=== PATIENT | female | born 1940 | race Caucasian/White ===

== ENCOUNTER 2017-10-15 10:32 | Outpatient (CLI) | payer OTHER ==
[~2017-10-15] VITALS: Ht 167.6 cm; Wt 51.8 kg
--- NOTE | ~2017-10-15 | CN ---
PATIENT NAME:ESDRAS ALMANZAR MEDICAL RECORD: [id number] : 42 LOCATION:[facility] D.2113 ADMIT DATE: ACCOUNT: [id number] CONSULTING PHYSICIAN: SUSAN DOLL MD REFERRING PHYSICIAN: DAMIÁN PARRISH M.D. DATE OF CONSULTATION: 10/15/2017 Cardiology Consult DIAGNOSES: 1. Chest pain compatible with angina. 2. Family history of coronary artery disease. HISTORY OF PRESENT ILLNESS: Mrs. Almanzar presents with 2 weeks of increasing episodes of chest pain. It waxes and wanes. If she does anything exertion hancock, her chest pain goes up to an 8 or 9 and when she rests, the pain goes away. It is overall worse sitting. She is getting more and more episodes over the last 2 weeks. Her troponin is normal. She continues to have chest pain here in the Emergency Room. PHYSICAL EXAMINATION: GENERAL APPEARANCE: Well-nourished, well-developed, appears stated age. Level of distress, comfortable. PSYCHIATRIC: Mental status, alert, normal affect. Orientation, oriented to time, place and person. EYES: Lids and conjunctiva, noninjected. No discharge, no pallor. ENT: Lips, teeth, gums, normal dentition. Oropharynx, no cyanosis, no pallor. NECK: Carotid arteries, bilateral normal upstroke, no bruits, no thrills. JUGULAR VEINS: No jugular venous pressure or distention. CERVICAL LYMPH NODES: Nontender, nonenlarged. THYROID: Not enlarged. Nontender. No nodules. LUNGS: Respiratory effort, unlabored. CHEST: Normal curvature. No thoracic deformity. No chest wall tenderness. Percussion, resonant. Auscultation, clear. No wheezes, no rales, no rhonchi. CARDIOVASCULAR: Precordial exam, nondisplaced. No heaves or pericardial thrills. Rate and rhythm, regular. Heart sounds, normal S1, normal S2. No S3, no gallop, no rub. Systolic murmur, not heard. Diastolic murmur, not heard. EXTREMITIES: No cyanosis, no edema. Peripheral pulses, full and equal in all extremities, except as noted. No bruits appreciated. ABDOMEN: Soft, nondistended. Normal aorta. No bruit. Nontender. No masses. Liver, nontender, no hepatomegaly. Spleen, nontender, no splenomegaly. MUSCULOSKELETAL: No joint tenderness. No joint swelling. No erythema. NEUROLOGICAL: Normal gait, normal strength, normal tone. SKIN: Warm and dry. OVERALL IMPRESSION: Increasing episodes of chest pain, worsened with any exertion, very good description of unstable angina. We will proceed with coronary angiography. Further care depends upon findings of the angiography. TRANSINT:[id number] Voice Confirmation ID: [id number] DOCUMENT ID: [id number] CONSULT REPORT [id number] ESDRAS ALMANZAR JEFFREY MD at 1713 CC: [id number] DICTATION DATE: 10/15/17 1206 LAUNDRY MACHINE OPERATOR: 10/15/17 1228 REG [facility] [address] [place] [address]
--- NOTE | ~2017-10-15 | HEMODYNAMI ---
PATIENT:ESDRAS COPPOLA MEDICAL RECORD: [id number] : 42 [id number] ADMISSION DATE: 10/15/17 Generatedon:10/15/201713:20 Patient name: ESDRAS COPPOLA Patient #: [id number] SSN: : 1940 Date of study: 10/15/2017 Page: Of Hemodynamic Procedure Report Patient Data Patient Demographics Procedure consent was obtained First Name: ESDRAS Gender: Female Last Name: ABDON : 1940 Patient #: [id number] Age: 77 year(s) Race: Unknown Additional ID: [id number] Contact details [address]: [address] [place] [address] State: [place] City: [place] Zip code: [address] Past Medical History Allergies: No known allergies Admission Admission Data Admission Date: 10/15/2017 Admission Time: 10:32 Admit Source: Emergency department Lab Results Lab Result Date: 10/15/2017 Lab Result Time: 0:00 Biochemistry Name Units Result Min Max BUN mg/dl 12 --(-*--)-- 7 18 Creatinine mg/dl 0.8 --(-*--)-- 0.6 1.3 CBC Name Units Result Min Max Hematocrit % 38.6 *-(----)-- 42 54 Hemoglobin g/dl 13.7 --(*---)-- 13.5 17.5 Procedure Procedure Types Cath Procedure Diagnostic Procedure LHC LHC w/Coronaries FFR/IVUS Intra-Coronary IVUS Initial Procedure Description Procedure Date Procedure Date: 10/15/2017 Procedure Start Time: 13:06 Procedure End Time: 13:17 Procedure Staff Name Function Rahul Craven MD Performing Physician Emigdio Campbell RT Scrub Erickson Ramirez RT Monitor Hoa Rebollar RN Nurse Procedure Data Cath Procedure Fluoroscopy Diagnostic fluoroscopy Total fluoroscopy Time: 1.8 time: 1.8 min min Diagnostic fluoroscopy Total fluoroscopy dose: 0 dose: 0 mGy mGy Contrast Material Contrast Material Type Amount (ml) Isovue 300 46 Entry Location Entry Primary Successful Side Size Upsize Upsize Entry Closure Succes sful Closure Location (Fr) 1 (Fr) 2 (Fr) Remarks Device Remarks Femoral Right 5 Fr 6 Fr Exoseal artery Short Estimated blood loss: 10 ml Diagnostic catheters Device Type Used For End Catheter Placement MULTIPACK Pigtail 5 Fr Procedure catheter MULTIPACK JL 4.0 5Fr Procedure catheter MULTIPACK 3DRC 5Fr Procedure catheter Procedure Complications No complications Procedure Medications Medication Administration Route Dosage Oxygen NC 3 l/min Lidocaine 2% added to field 20 Heparin Flush Bag added to field 2 bags (1000units/500ml NS) 0.9% NaCl I.V. 100 ml/hr Versed I.V. 1 mg Fentanyl I.V. 50 mcg Versed I.V. 1 mg Fentanyl I.V. 50 mcg Hemodynamics Rest HGB: 13.7 (g/dl) Heart Rate: 72 (bpm) Snapshots Pre Cath Intra NCS Post Cath Vital Signs Time Heart Resp SPO2 etCO2 NIBP (mmHg) Rhythm Pain Sedation Rate (ipm) (%) (mmHg) Status Level (bpm) 12:51:41 75 19 100 1.4 130/76(106) NSR 0 (11) 10(A) , No pain 12:55:53 72 25 100 27.6 133/69(110) NSR 0 (11) 10(A) , No pain 13:00:05 69 22 100 19.3 122/65(99) NSR 0 (11) 10(A) , No pain 13:04:15 71 17 93 0 108/60(83) NSR 0 (11) 10(A) , No pain 13:08:21 75 18 93 0 97/56(77) NSR 0 (11) 9(A) , No pain 13:12:23 76 15 94 0 104/57(86) NSR 0 (11) 9(A) , No pain 13:16:24 74 18 92 0 112/62(90) NSR 0 (11) 10(A) , No pain Medications Time Medication Route Dose Verified Delivered Reason Notes Effe ctiveness by by 12:49:53 Oxygen NC 3 Rahul Camara used for l/min Merissa Rebollar diamond setter 12:50:02 Lidocaine 2% added 20ml Rahul aKy for local to vial Merissa Craven MD anesthetic field 12:50:10 Heparin Flush added 2 Rahul Kay used for Bag to bags Merissa Craven MD procedure (1000units/500ml field NS) 12:50:20 0.9% NaCl I.V. 100 Rahulbrian Camara Per ml/hr Merissa Rebollar RN physician 13:01:28 Versed I.V. 1 mg Rahul Wheatleyie for Merissa Rebollar RN sedation 13:01:33 Fentanyl I.V. 50 Rahul Buffie for mcg Merissa Rebollar RN sedation 13:13:04 Versed I.V. 1 mg Rahul Wheatleyie for Merissa Rebollar RN sedation 13:13:08 Fentanyl I.V. 50 Rahul Wheatleyie for mcg Merissa Rebollar RN sedation Procedure Log Time Note 12:28:40 Informed consent obtained and on chart 12:28:45 Admit Source: Emergency department 12:29:35 Diagnostic Cath status Elective 12:29:37 Emigdio PHAN(R) sent for patient. Start room use. 12:29:38 Time tracking: Regular hours (M-F 7:00 - 5:00) 12:29:41 Plan of Care:Hemodynamics will remain stable., Cardiac rhythm will remain stable., Comfort level will be maintained., Respiratory function will remain adequate., Patient/ family verbilizes understanding of procedure., Procedure tolerated without complication., Recovers from procedure without complications.. 12:29:49 H&P Date Dictated: 10/15/2017 New H&P dictated by physician.. 12:38:40 Lab Result : Creatinine 0.8 mg/dl 12:38:40 Lab Result : BUN 12 mg/dl 12:38:40 Lab Result : Hemoglobin 13.7 g/dl 12:38:40 Lab Result : Hematocrit 38.6 % 12:38:43 Lab results completed and on chart. 12:38:50 Patient received from ED to CCL 3 Alert and oriented. Tansferred to table in Supine position. 12:38:51 Warm blankets applied, and ying hugger turned on for patient comfort. 12:38:51 Correct patient and procedure confirmed by team. 12:38:52 ECG and BP/O2 sat monitors applied to patient. 12:38:54 Pre-procedure instructions explained to patient. 12:38:55 Pre-op teaching completed and patient verbalized understanding. 12:38:56 Family in waiting room. 12:38:58 Patient NPO since Midnight. 12:49:53 Oxygen 3 l/min NC was administered by Hoa Rebollar RN; used for procedure; 12:50:02 Lidocaine 2% 20ml vial added to field was administered by Rahul Craven MD; for local anesthetic; 12:50:10 Heparin Flush Bag (1000units/500ml NS) 2 bags added to field was administered by Rahul Craven MD; used for procedure; 12:50:20 0.9% NaCl 100 ml/hr I.V. was administered by Hoa Rebollar RN; Per physician; 12:50:29 Vital chart was started 12:53:03 Baseline sample Acquired. 12:53:13 Rhythm: sinus rhythm 12:53:16 Baseline sample Acquired. 12:57:36 Patient allergic to No known allergies 12:57:38 Is the patient allergic to Iodine/contrast media? No. 12:57:40 Is patient on blood thinner?Yes 12:57:41 ACC The patient was administered the following blood thiners within the last 24 hours: ACCPlavix 12:57:42 Patient diabetic? No. 12:57:44 Previous problem with sedation/anesthesia? No ? 12:57:45 Snore? Yes 12:57:46 Sleep apnea? Yes 12:57:46 Deviated septum? No 12:57:47 Opens mouth fully? Yes 12:57:48 Sticks out tongue? Yes 12:57:50 Airway obstruction? Yes copd 12:57:56 Dentures? Yes top denture out 12:57:59 Pre procedure: right dorsailis pedis pulse 1+ Palpable, but thready & weak; easily obliterated 12:58:00 Patient pain scale 0/10 ?. 12:58:06 IV patent on arrival in left forearm with 0.9% NaCl at [facility]. 12:58:08 Lab results completed and on chart. 12:58:11 Right groin area was prepped with chlora-prep and draped in sterile fashion 12:58:12 Alarms reviewed by R. N. 12:58:12 Sharps counted by scrub and verified by R.N. 12:58:15 Use device set Femoral Dx 12:58:16 ACIST Syringe (41949) opened to sterile field. 12:58:17 Bag Decanter (2001S) opened to sterile field. 12:58:19 ACIST Hand Control (52018) opened to sterile field. 12:58:20 ACIST Manifold (59392) opened to sterile field. 12:58:21 Tegaderm 4 x 4 (1626W) opened to sterile field. 12:58:25 Medline Cath Pack (STMR23610) opened to sterile field. 12:58:25 DIAGNOSTIC WIRE .035 260cm J wire (738484) opened to sterile field. 12:58:26 DIAGNOSTIC Multipack 5Fr catheter set (VJ4904) opened to sterile field. 12:58:28 SHEATH Prelude 5Fr 0.035 (DMY-7B-36-035) opened to sterile field. 12:58:36 Physician arrived 12:58:37 --------ALL STOP TIME OUT------ 12:58:37 Final Timeout: patient, procedure, and site verified with staff and physician. All members of the team are in agreement. 12:58:38 Right groin site verified by team. 12:58:44 Physical assessment completed. ASA score P 3 - A patient with severe systemic disease as per Rahul Craven MD. 12:58:46 Sedation plan: IV Moderate Sedation Medication:Versed, Fentanyl 13:01:28 Versed 1 mg I.V. was administered by Hoa Rebollar RN; for sedation; 13:01:33 Fentanyl 50 mcg I.V. was administered by Hoa Rebollar RN; for sedation; 13:06:53 Procedure started. 13:06:53 Full Disclosure recording started 13:06:56 Local anesthetic to right femoral artery with Lidocaine 2% by Rahul Craven MD.INITIAL ACCESS ONLY 13:07:03 A 5 Fr sheath was inserted into the Right Femoral artery 13:07:10 Zero performed for pressure channel P1 13:07:13 Zero performed for pressure channel P1 13:07:15 Zero performed for pressure channel P1 13:07:27 A MULTIPACK Pigtail 5 Fr catheter was advanced over the wire and used for Procedure. 13:07:43 LV gram done using WILDE 13:07:45 Injector settings: Ml/sec: 10, Volume: 20, 13:07:50 EF : 60 % 13:08:10 Catheter exchanged over wire. 13:08:14 A MULTIPACK JL 4.0 5Fr catheter was advanced over the wire and used for Procedure. 13:08:40 LCA angiography performed. 13:09:29 Catheter exchanged over wire. 13:09:34 A MULTIPACK 3DRC 5Fr catheter was advanced over the wire and used for Procedure. 13:09:50 SHEATH Prelude 6Fr 0.035 (AQB-8X-53-035) opened to sterile field. 13:09:58 INFLATOR Merit BasixCompak (KZ6591) opened to sterile field. 13:10:02 CHOICE PT Extra Support 182cm wire (5653593V6) opened to sterile field. 13:10:07 [facility] [place] IVUS Catheter (32421K) opened to sterile field. 13:10:13 Catheter removed. 13:10:19 Sheath upsized to a 6 Fr Short. 13:11:15 GUIDE 6FR HS I catheter (LA6HSI) opened to sterile field. 13:11:51 6 Fr hsI guide catheter was inserted over the wire 13:12:15 choice pt es wire advanced. 13:12:17 Wire advanced across lesion. 13:12:19 IVUS catheter advanced over wire. 13:13:04 Versed 1 mg I.V. was administered by Hoa Rebollar RN; for sedation; 13:13:08 Fentanyl 50 mcg I.V. was administered by Hoa Rebollar RN; for sedation; 13:13:42 IVUS pass to RCA lesion performed. 13:13:42 IVUS catheter removed over wire. 13:14:02 Wire removed. 13:14:02 Guide catheter removed. 13:14:07 EXOSEAL 6Fr (EX600) opened to sterile field. 13:14:16 Sheath removed intact; hemostasis achieved with Exoseal to the Right Femoral artery. 13:14:17 Procedure ended.(Physican Out) 13:15:09 Fluoroscopy time 01.80 minutes. 13:15:43 Fluoroscopy dose: 0 mGy 13:15:43 Flurop Dose total: 0 13:15:47 Contrast amount:Isovue 300 46ml. 13:15:48 Sharps counted by scrub and verified by R.N. 13:15:53 Post-op/insertion site Right Femoral artery dressed using a 4 x 4 and Tegaderm. 13:15:57 Post right femoral artery:stable, soft, clean and dry 13:16:00 Post Procedure Pulses reassessed and unchanged 13:16:02 Post-procedure physical assessment completed. ASA score P 3 - A patient with severe systemic disease as per Rahul Craven MD. 13:16:04 Post procedure rhythm: unchanged. 13:16:22 Estimated blood loss: 10 ml 13:16:23 Post procedure instruction explained to patient.Patient verbalizes understanding. 13:16:26 Patient needs reinforcement of post procedure teaching. 13:16:36 Procedure type changed to Cath procedure, Diagnostic procedure, LHC, LHC w/Coronaries, FFR/IVUS, Intra-Coronary IVUS Initial 13:16:54 Procedure and supply charges have been captured, reviewed, submitted and are correct. 13:16:55 Procedure Complication : No complications 13:16:57 Vital chart was stopped 13:16:57 See physician's report for complete and final results. 13:16:58 Report given to Pre/Post Procedure Room. 13:17:00 Patient transfered to Pre/Post Procedure Room with Stretcher. 13:17:02 Procedure ended. 13:17:02 Full Disclosure recording stopped 13:17:05 End room use (Document Last) Device Usage Item Name Manufacture Quantity Catalog Number Hospital Part Current Minimal Lot# / Charge Number Stock Stock Serial# Code ACIST Syringe Acist 1 81861 [id number] [id number] 20 (41936) Medical Systems Inc Bag Decanter Microtek 1 2002S 362200 22435 192480 5 (2001S) Medical Inc. ACIST Hand Acist 1 81497 848727 243003 720923 5 Control (67398) Medical Systems Inc ACIST Manifold Acist 1 69974 232032 206932 824653 5 (52161) Medical Systems Inc Tegaderm 4 x 4 3M 1 1626W 101287 931249 462679 5 (1626W) Medline Cath Cardinal 1 [id number] 295671 58828 914654 5 Pack Health ([id number]) DIAGNOSTIC WIRE [facility] Jasiel 1 144373 664054 761721 601036 30 .035 260cm J wire (166229) DIAGNOSTIC Cardinal 1 DE5379 556344 70848 953628 30 Multipack 5Fr Health catheter set (TV0366) SHEATH Prelude Merit 1 LTB-8H-36-035 672307 197300 025201 5 5Fr 0.035 Medical (UHQ-7S-38-035) MULTIPACK Cardinal 1 064142 5 Pigtail 5 Fr Health catheter MULTIPACK JL Cardinal 1 360482 5 4.0 5Fr Health catheter MULTIPACK 3DRC Cardinal 1 402166 5 5Fr catheter Health SHEATH Prelude Merit 1 EIL-9B-0735 033736 6454926 866950 5 6Fr 0.035 Medical (VBM-6H-05-035) INFLATOR Merit Merit 1 QI4661 092011 756880 749246 15 [employer] [facility] Medical (XF0494) CHOICE PT Extra [place] 1 [id number] 905227 360788 707866 5 Support 182cm Scientific wire ([id number]) [facility] 1 95796F 544950 241984 585984 8 [place] IVUS Catheter (37244D) GUIDE 6FR HS I Medtronic 1 LA6HSI 828634 59420 764130 1 catheter (LA6HSI) EXOSEAL 6Fr Cardinal 1 EX600 626921 896706 189715 10 (EX600) Health Signature Audit [place] Stage Time Signature Unsigned Intra-Procedure 10/15/2017 Erickson Ramirez 1:20:08 PM RT(R) Signatures Monitor : Erickson Ramirez RT Signature : Date : Time : [place] [id number] [place] [address]
--- NOTE | ~2017-10-15 | OP ---
PATIENT NAME: ESDRAS COPPOLA MEDICAL RECORD: [id number] :42 LOCATION:D.M2 D.2113 ADMISSION DATE: SURGEON: SUSAN DOLL MD DATE OF OPERATION: 10/15/2017 PROCEDURES: 1. Left heart catheterization. 2. Selective coronary angiography. 3. Left ventriculogram. 4. Intravascular ultrasound. INDICATION: Chest pain compatible with angina. PROCEDURE IN DETAIL: After informed consent was obtained and after detailed explanation of the risks, benefits as well as alternative therapies, the patient elected to proceed with angiogram and heart catheterization. The right femoral area was prepped and draped in normal sterile fashion. Right femoral artery was cannulated via modified Seldinger technique with placement of 5-Polish sheath. All catheters exchanged through this sheath. FINDINGS: Left ventriculogram was performed in standard 30-degree WILDE view, reveals good cardiac wall motion throughout all segments. Overall ejection fraction estimated at 55% to 60%. SELECTIVE CORONARY ANGIOGRAPHY: 1. Left main showed no significant angiographic disease. 2. Left anterior descending has mild irregularities, but no flow-limiting stenosis. 3. The left circumflex has mild irregularities, but no flow-limiting stenosis. 4. The right coronary has mild irregularities with questionable stenosis in the mid vessel; however, intravascular ultrasound reveals there is minimal disease in only a tortuous area of the vessel. OVERALL IMPRESSION: No significant coronary artery disease is present. Normal LV function. Chest pain is noncardiac in etiology. TRANSINT:[id number] Voice Confirmation ID: [id number] DOCUMENT ID: [id number] SUSAN DOLL MD at 1713 CC: [id number] DICTATION DATE: 10/15/17 1322 RETAIL PLANNER: 10/15/17 1335 REG [facility] [address] [place] [address]
[2017-10-15 11:38] LABS: CREATINE KINASE 45 UL (21-215); TROPONIN-I < 0.017 ng/mL (0.000-0.060)
[2017-10-15 12:18] LABS: BASOPHILS 0.3 % (0-2); EOSINOPHILS 0.2 % (0-7); HEMATOCRIT 38.6 % (36.0-48.0); HEMOGLOBIN 13.7 g/dL (12-16); IMMATURE GRANULOCYTES 0.2 % (0-5); LYMPHOCYTES 7.8 % (15-50); MCH 31.9 pg (26.0-34.0); MCHC 35.5 g/dL (31.0-37.0); MEAN PLATELET VOLUME 11.8 fL (7.4-10.4); MONOCYTES 7.2 % (2-11); NEUTROPHILS 84.3 % (40-80); RBC 4.29 10x6/uL (4.00-5.40); RDW 13.3 % (11.5-14.5)
[2017-10-15 12:22] LABS: ANION GAP 9.4 mmol/L (8-16); CALCIUM 8.9 mg/dL (8.5-10.1); CREATININE - SERUM 0.8 mg/dL (0.6-1.3); POTASSIUM - SERUM 4.4 mmol/L (3.5-5.1)
[2017-10-15 12:23] LABS: PLATELET COUNT 352 10x3/uL (130-400)
[2017-10-15 16:24] VITALS: BP 127/55; BMI 18.2
[2017-10-15 20:00] VITALS: BP 97/46
[2017-10-16] VITALS: BP 99/50
[2017-10-16 04:00] VITALS: BP 117/61
[2017-10-16 08:02] VITALS: BP 130/61
[2017-10-16 11:01] VITALS: Ht 167.6 cm; Wt 51.8 kg
[2017-10-16 11:25] VITALS: BP 100/54
[2017-10-16 15:39] VITALS: BP 106/60
[2017-10-16 21:42] VITALS: BP 105/56
[2017-10-16 22:39] LABS: APPEARANCE CLEAR (CLEAR); BILIRUBIN NEGATIVE (NEGATIVE); COLOR YELLOW (YELLOW); GLUCOSE NEGATIVE (NEGATIVE); KETONE NEGATIVE (NEGATIVE); NITRITE NEGATIVE (NEGATIVE); PROTEIN NEGATIVE (NEGATIVE); SPECIFIC GRAVITY 1.005 (1.005-1.020); UROBILINOGEN NORMAL (NORMAL)
[2017-10-16 22:42] LABS: WHITE CELLS - URINE 0-5 /hpf (0-5)
[2017-10-16 22:43] LABS: EPITHELIAL CELLS 0-5 /hpf (0-5)
[2017-10-17 01:22] VITALS: BP 101/59
[2017-10-17 05:37] VITALS: BP 102/53
[2017-10-17 06:45] LABS: BASOPHILS 0.3 % (0-2); EOSINOPHILS 0.4 % (0-7); HEMATOCRIT 34.6 % (36.0-48.0); HEMOGLOBIN 11.9 g/dL (12-16); IMMATURE GRANULOCYTES 0.3 % (0-5); LYMPHOCYTES 8.6 % (15-50); MCH 31.5 pg (26.0-34.0); MCHC 34.4 g/dL (31.0-37.0); MCV 91.5 fL (80.0-100.0); MEAN PLATELET VOLUME 10.3 fL (7.4-10.4); MONOCYTES 8.8 % (2-11); NEUTROPHILS 81.6 % (40-80); PLATELET COUNT 321 10x3/uL (130-400); RBC 3.78 10x6/uL (4.00-5.40); RDW 13.2 % (11.5-14.5); WBC 12.9 10x3/uL (4.8-10.8)
[2017-10-17 07:01] LABS: CALC OSMOLALITY 274 mosm/kg (275-300); CALCIUM 8.4 mg/dL (8.5-10.1); CARBON DIOXIDE 30.8 mmol/L (21.0-32.0); CHLORIDE - SERUM 100 mmol/L (98-107); CREATININE - SERUM 0.7 mg/dL (0.6-1.3); GLUCOSE 133 mg/dL (74-106); POTASSIUM - SERUM 3.3 mmol/L (3.5-5.1); SODIUM 137 mmol/L (136-145); UREA NITROGEN 9 mg/dL (7-18); eGFR NON AFRICAN AMERICAN 86 mL/min (90-120)
[2017-10-17 08:14] VITALS: BP 97/54
[2017-10-17 13:45] VITALS: BP 103/44
[2017-10-17 16:26] VITALS: BP 96/44
[2017-10-17 22:29] VITALS: BP 106/56
[2017-10-18] VITALS: BP 129/66
[2017-10-18 05:42] LABS: BASOPHILS 0.2 % (0-2); EOSINOPHILS 2.5 % (0-7); HEMOGLOBIN 10.8 g/dL (12-16); IMMATURE GRANULOCYTES 0.5 % (0-5); MCH 30.8 pg (26.0-34.0); MCHC 33.8 g/dL (31.0-37.0); MCV 91.2 fL (80.0-100.0); MEAN PLATELET VOLUME 9.8 fL (7.4-10.4); MONOCYTES 7.9 % (2-11); NEUTROPHILS 77.9 % (40-80); PLATELET COUNT 300 10x3/uL (130-400); RBC 3.51 10x6/uL (4.00-5.40); RDW 13.4 % (11.5-14.5)
[2017-10-18 05:50] VITALS: BP 116/63
[2017-10-18 05:59] LABS: CALC OSMOLALITY 275 mosm/kg (275-300); CALCIUM 8.2 mg/dL (8.5-10.1); CARBON DIOXIDE 30.8 mmol/L (21.0-32.0); CHLORIDE - SERUM 103 mmol/L (98-107); CREATININE - SERUM 0.7 mg/dL (0.6-1.3); GLUCOSE 124 mg/dL (74-106); SODIUM 138 mmol/L (136-145); UREA NITROGEN 10 mg/dL (7-18); eGFR NON AFRICAN AMERICAN 86 mL/min (90-120)
[2017-10-18 08:14] VITALS: BP 131/63
[2017-10-18] MEDS ORDERED: PREDNISONE5 MG PO (16:01)
[2017-10-18] MEDS ORDERED: COMBIVENT RESPIM4 GM INH (16:02)
[2017-10-18 16:13] VITALS: BP 118/62
[2017-10-18 16:19] VITALS: BP 106/51
[2017-10-18] MEDS ORDERED: AUGMENTIN 500-11 TA1 PO (16:21)
== END 2017-10-18 18:30 ==
LOC: D.ER 10:32 → D.M2 10:32 → D.CLR 10:32 → EDSTATUS 13:30 → D.ER 14:30 → D.CLR 14:30 → D.M2 15:20 → D.CLR 10-18 18:30
PROVIDERS: Emergency Medicine; Internal Medicine Interventional Cardiology; Internal Medicine Nephrology
DX: R07.9 Chest pain, unspecified (principal); Z82.49 Family history of ischemic heart disease and other diseases of the circulatory system; J44.1 Chronic obstructive pulmonary disease with (acute) exacerbation; E87.1 Hypo-osmolality and hyponatremia; R59.1 Generalized enlarged lymph nodes; F17.203 Nicotine dependence unspecified, with withdrawal; Z01.812 Encounter for preprocedural laboratory examination

== ENCOUNTER 2020-07-04 17:04 | Inpatient (IN) | payer OTHER ==
[~2020-07-04] VITALS: Ht 167.6 cm; Wt 54.4 kg
[~2020-07-04 17:04] MED LIST: AUGMENTIN 500-11 TA1 PO; COMBIVENT RESPIM4 GM INH; PREDNISONE5 MG PO
[2020-07-04 19:13] VITALS: BP 140/57
[2020-07-04] MEDS ORDERED: TORADOL10 MG PO (19:59)
[2020-07-04 21:20] LABS: BASOPHILS 0.3 % (0-2); EOSINOPHILS 0.8 % (0-7); HEMATOCRIT 39.8 % (36.0-48.0); HEMOGLOBIN 13.4 g/dL (12-16); IMMATURE GRANULOCYTES 0.2 % (0-5); LYMPHOCYTE ABS# 1.13 10x3/uL (1.18-3.74); LYMPHOCYTES 9.8 % (15-50); MCHC 33.7 g/dL (31.0-37.0); MCV 89.2 fL (80.0-100.0); MONOCYTES 5.5 % (2-11); NEUTROPHIL ABS# 9.58 10x3/uL (1.56-6.13); NEUTROPHILS 83.4 % (40-80); PLATELET COUNT 250 10x3/uL (130-400); RBC 4.46 10x6/uL (4.00-5.40); RDW 14.1 % (11.5-14.5); WBC 11.5 10x3/uL (4.8-10.8)
[2020-07-04 21:32] LABS: ANION GAP 9.9 mmol/L (8-16); APTT 32.7 SECONDS (22.8-39.4); CALCIUM 8.3 mg/dL (8.5-10.1); CARBON DIOXIDE 29.4 mmol/L (21.0-32.0); INR 1.17 (0.85-1.17); POTASSIUM - SERUM 4.3 mmol/L (3.5-5.1); PROTIME 13.8 SECONDS (11.6-15.0)
[2020-07-04 21:37] LABS: ALBUMIN 3.3 g/dL (3.4-5.0); BILIRUBIN - TOTAL 0.26 mg/dL (0.2-1.3); PROTEIN - SERUM 6.7 g/dL (6.4-8.2)
--- NOTE | 2020-07-04 22:07 | NUR ---
PT REPORT GIVEN TO RACHELE SUTHERLAND WITH VERBAL ACKNOWLEDGEMENT
[2020-07-04 22:36] VITALS: BMI 19.4
[2020-07-04 23:37] VITALS: BP 131/60
--- NOTE | 2020-07-04 23:50 | NUR ---
pt came to floor via bed from er. transferred to med surg bed well. pt rated her pain a 5 but didnt want any pain medication at this time. pt refused non skid socks. nurse applied scds and educated on the use of an incentive spirometer. volume was 1000. pt resting comfortably in bed at this time.
[2020-07-05] VITALS (8 sets, daily range): BP systolic 102–148; BP diastolic 52–64; Ht 167.6 cm; Wt 54.4 kg
[2020-07-05 01:44] LABS: CKMB 0.5 U/L (0.0-3.6); CREATINE KINASE 22 UL (21-215); MAGNESIUM - SERUM 1.9 mg/dL (1.8-2.4); TROPONIN-I < 0.017 ng/mL (0.000-0.060)
[2020-07-05 06:29] LABS: BASOPHILS 0.5 % (0-2); EOSINOPHILS 2.1 % (0-7); HEMATOCRIT 36.5 % (36.0-48.0); HEMOGLOBIN 12.4 g/dL (12-16); IMMATURE GRANULOCYTES 0.1 % (0-5); LYMPHOCYTE ABS# 1.12 10x3/uL (1.18-3.74); LYMPHOCYTES 14.9 % (15-50); MCH 30.2 pg (26.0-34.0); MEAN PLATELET VOLUME 10.5 fL (7.4-10.4); NEUTROPHIL ABS# 5.67 10x3/uL (1.56-6.13); NEUTROPHILS 75.4 % (40-80); PLATELET COUNT 224 10x3/uL (130-400)
[2020-07-05 07:00] LABS: WBC 7.5 10x3/uL (4.8-10.8)
[2020-07-05 07:09] LABS: ALBUMIN 3.1 g/dL (3.4-5.0); ALKALINE PHOSPHATASE 83 U/L (30-120); ALT (SGPT) 11 U/L (10-68); BILIRUBIN - TOTAL 0.49 mg/dL (0.2-1.3); CALC OSMOLALITY 279 mosm/kg (275-300); CARBON DIOXIDE 29.1 mmol/L (21.0-32.0); CHLORIDE - SERUM 102 mmol/L (98-107); CREATININE - SERUM 0.8 mg/dL (0.6-1.3); GLUCOSE 107 mg/dL (74-106); POTASSIUM - SERUM 3.9 mmol/L (3.5-5.1); PROTEIN - SERUM 6.2 g/dL (6.4-8.2); SODIUM 137 mmol/L (136-145); UREA NITROGEN 30 mg/dL (7-18); eGFR NON AFRICAN AMERICAN 73 mL/min (90-120)
--- NOTE | 2020-07-05 07:20 | NUR ---
REC'D IN ROOM AWAKE AND ALERT. RESP EVEN AND UNLABORED WITH NO DISTRESS NOTED. CAN EXPRESS NEEDS AND WANTS. NO C/O NOTED OR VOICED AT THIS TIME. ASSESSMENT COMPLETED. C/L IN REACH AT BEDSIDE.
--- NOTE | 2020-07-05 07:56 | MORECARE ---
CASE MANAGEMENT DISCHARGE SUMMARY PATIENT: ESDRAS COPPOLA UNIT: [id number] ADM DATE: 07/04/20 AGE: 80 : 41 SEX: F ROOM/BED: D.2240 AUTHOR: KALEB WEINSTEIN PHYSICIAN: REFERRING PHYSICIAN: ALBANIA GUTIERREZ MD DATE OF SERVICE: 07/05/20 Discharge Plan Patient Name: ESDRAS COPPOLA Facility: [facility] : 1940 Planned Disposition: Home Anticipated Discharge Date: Discharge Date: Expected LOS: Initial Reviewer: [email or web address] Initial Review Date: 07/04/2020 Generated: 07/05/20 8:55 am Comments DCP- Discharge Planning Updated by [email or web address]: Elizabeth Bowser on 07/05/20 6:[address] PER PATIENT'S NURSE, THE [facility] NEEDS [facility]GERY THIS AM I CALLED THE [facility] AND SPOKE WITH DAMIAN SHE STATED THAT THEY WERE ON DIVERSION FOR TELEMETRY AND THE PATIENT HAS A TELEMETRY ORDER, DAMIAN DIRECTED ME TO CALL [phone]. I CALLED THERE AND SPOKE TO ESTRELLA JOSHI NOTIFICATION ID# IS [id number] Patient Name: ESDRAS COPPOLA Page [phone] at 0756 All edits/amendments must be made on the electronic document DICTATION DATE: 07/05/20 075 SAMPLE SELECTOR: AMELIA 07/05/20 0755 RPT#: [id number] DC DATE: STATUS: ADM IN [facility] [address] [place] [address] END OF REPORT
--- NOTE | 2020-07-05 10:44 | NUR ---
I have reviewed this patient and I concur with the Shift Assessment completed by the Licensed Practical Nurse today this shift.
--- NOTE | 2020-07-05 12:17 | NUR ---
DENIES NEEDS,BUT REQUEST PAIN MEDS FOR HIP. CALL LIGHT IN REACH.WILLOW LAM TO GET PAIN MEDS.
--- NOTE | 2020-07-05 12:25 | NUR ---
MEDICATED WITH MORPHINE PER ORDERS FOR C/O RIGHT HIP PAIN. C/L IN REACH AT BEDSIDE.
--- NOTE | 2020-07-05 16:06 | NUR ---
PT OFF FLOOR FOR SURGERY AT THIS TIME.
--- NOTE | 2020-07-05 18:44 | NUR ---
REC'D BACK FROM RECOVERY AT THIS TIME WITH DRESSING CLEAN DRY AND INTACT TO RIGHT HIP. VERY EASILY TO AROUSED WHEN NAME IS CALLED. RESP EVEN AND UNLABORED WITH NO DISTRESS NOTED. CHECKED ON OFTEN. C/L IN REACH AT BEDSIDE.
--- NOTE | 2020-07-05 20:35 | NUR ---
REPORT RECEIVED, WILL CONT POC. PT A&O, SPEAKING WITH FAMILY AT BEDSIDE. NO S/S OF DISTRESS OBSERVED. RR EVEN & UNLABORED ON 2L. ICE PACK TO HIP FOR POST-SURG CARE. DRESSINGS INTACT WITH MINIMAL BLOOD ON DRESSINGS. PT REPORTS NO PAIN AT THIS TIME. EDUCATED PT TO REPORT ANY PAIN. BED LOCKED AND LOWERED, CL IN REACH. WILL CONT TO MONITOR.
[2020-07-06] VITALS: BP 133/54
[2020-07-06 03:34] VITALS: BP 113/53
[2020-07-06 06:25] LABS: BASOPHILS 0.2 % (0-2); EOSINOPHILS 0.1 % (0-7); HEMATOCRIT 30.4 % (36.0-48.0); HEMOGLOBIN 10.3 g/dL (12-16); IMMATURE GRANULOCYTES 0.1 % (0-5); LYMPHOCYTE ABS# 0.71 10x3/uL (1.18-3.74); LYMPHOCYTES 8.2 % (15-50); MCH 30.1 pg (26.0-34.0); MCHC 33.9 g/dL (31.0-37.0); MCV 88.9 fL (80.0-100.0); MEAN PLATELET VOLUME 10.5 fL (7.4-10.4); MONOCYTES 9.8 % (2-11); NEUTROPHIL ABS# 7.11 10x3/uL (1.56-6.13); NEUTROPHILS 81.6 % (40-80); PLATELET COUNT 208 10x3/uL (130-400); RBC 3.42 10x6/uL (4.00-5.40); RDW 13.9 % (11.5-14.5); WBC 8.7 10x3/uL (4.8-10.8)
[2020-07-06 06:34] LABS: BILIRUBIN NEGATIVE (NEGATIVE); KETONE NEGATIVE (NEGATIVE); NITRITE NEGATIVE (NEGATIVE); UROBILINOGEN NORMAL mg/dL (< 2)
[2020-07-06 06:35] LABS: WHITE CELLS - URINE 3 HPF (0-4)
[2020-07-06 06:36] LABS: BACTERIA FEW HPF (NONE SEEN); SQUAMOUS EPITHELIAL 0-5 HPF (0-4)
[2020-07-06 06:52] LABS: ALBUMIN 2.7 g/dL (3.4-5.0); BILIRUBIN - TOTAL 0.36 mg/dL (0.2-1.3); CALCIUM 7.7 mg/dL (8.5-10.1); CARBON DIOXIDE 28.8 mmol/L (21.0-32.0); CREATININE - SERUM 0.8 mg/dL (0.6-1.3); MAGNESIUM - SERUM 1.8 mg/dL (1.8-2.4); PROTEIN - SERUM 5.3 g/dL (6.4-8.2)
[2020-07-06 06:53] LABS: ANION GAP 9.1 mmol/L (8-16); POTASSIUM - SERUM 4.9 mmol/L (3.5-5.1)
--- NOTE | 2020-07-06 08:22 | OP ---
PATIENT NAME: ESDRAS ALMANZAR MEDICAL RECORD: [id number] :42 LOCATION:D.MS Deal2240 ADMISSION DATE:07/04/20 SURGEON: ALBANIA PAGE DO DATE OF OPERATION: 07/05/2020 PROCEDURE PERFORMED: Right hip intramedullary nailing. PREOPERATIVE DIAGNOSIS: Right hip intertrochanteric fracture. POSTOPERATIVE DIAGNOSIS: Right hip intertrochanteric fracture. INDICATIONS: Esdras Almanzar is a 80-year-old female who fell onto her right hip yesterday. She was brought to the ER. She could not bear weight and seen to have a right hip fracture, intertrochanteric. CT was done as well. She was admitted for surgery today. Overnight, she was n.p.o. I talked to her this morning. I informed her of the risks of this including infection, bleeding, damage to nerves and vessels in the area, continued pain, malunion, nonunion. She would be at increased risk for that because she smokes, blood clots and even . She signed the consent. SURGEON: [place] Page DO DESCRIPTION OF THE PROCEDURE: The patient was taken to the operative suite, laid in supine position, given general anesthetic and LMA was placed. She was given a gram of Ancef and a gram of TXA preoperatively. The patient was then moved over to the [place] table. Time out was performed. Everyone was in agreement with the correct side, site, patient, and procedure. I then reduced the intertrochanteric fracture on the [place] table, and once that was achieved, the right hip was prepped and draped in sterile fashion. I then got a starting point on the greater trochanter and entered into the femoral canal, AP and lateral. I then used the starting reamer and entered into the femoral canal, then reamed up to a 15 and sized the nail to be 360, reamed up to a 15 and put a 13 x 360 nail down. Once this was in adequate position, I put the lag screw in on the lateral and then reamed 100 mm, 5 x 5 lag screw was in good adequate position on AP and lateral. I then put in an antirotational screw 85-mm in length and then I reduced and compressed the fracture after releasing the traction with 10.5 mm lag screw and then locked it into the nail. I then put in the antirotational screw then went distally and put in a distal screw in the dynamic hole 42 mm in length. I then got x-rays, AP and lateral and everything was in good position. We then irrigated. I then closed the IT band of the most proximal incision with a #1 Vicryl in a [id number] fashion and then closed the other incisions with 2-0 Vicryl and the other 2 incisions as well as outlined with 2-0 Vicryl in inverted fashion and placed Prineo glue on them all. She was then dressed with Telfa and Tegaderm. She was awakened and taken to recovery in stable condition. Blood loss was approximately 200 mL. COMPLICATIONS: None. TRANSINT:[id number] Voice Confirmation ID: [id number] DOCUMENT ID: [id number] OPERATIVE REPORT [id number] ESDRAS ALMANZAR,ALBANIA Nichole DO at 0822 CC: [id number] DICTATION DATE: 07/05/201736 RECEIVER: 07/06/20 0314 ADM IN [facility] [address] [place] [address]
[2020-07-06 08:26] VITALS: BP 124/47
--- NOTE | 2020-07-06 09:36 | NUR ---
AAOX4 UPON ENTERING. ADMINSTERED MORNING AT THIS TIME, NO DIFFICULTIES. UPRIGHT IN BED EATING BREAKFAST. DENIES ANY NEEDS AT THIS TIME. BED IN LOWEST POSITION, BED RAILS X2, CALL LIGHT WITHIN REACH. WILL CONTINUE POC.
--- NOTE | 2020-07-06 11:40 | NUR ---
I have reviewed this patient and I concur with the Shift Assessment completed by the Licensed Practical Nurse today this shift.
--- NOTE | 2020-07-06 12:07 | NUR ---
REHAB PRESCREEN PT IS POD#1 HASNT STARTED THERAPY AT THIS TIME, PT HAS [facility] [employer] INSURANCE WILL HAVE TO CHECK IF WLL QUALIFY TO BE ADMITTED TO IRF, WILL MONITOR PROGRESS WHILE WAITING TO HEAR BACK FROM INSURANCE. THANK YOU FOR THIS EVAL. KATHY ACHARYA LPN CLINICAL LAISION
[2020-07-06 12:17] VITALS: BP 109/38
[2020-07-06] MEDS ORDERED: VITAMIN B-121000 MCG PO (13:42)
--- NOTE | 2020-07-06 14:44 | NUR ---
PRN NORCO FOR PAIN IN GROIN AND INCISION SITE. RESTING IN BED, FAMILY AT BEDSIDE. DENIES ANY NEEDS AT THIS TIME. WILL CONTINUE POC.
[2020-07-06 15:55] VITALS: BP 115/48
--- NOTE | 2020-07-06 18:31 | NUR ---
IV MORPHINE FOR PAIN, TOLERATED WELL. RESTING IN BED. DENIES ANY NEEDS AT THIS TIME. BED IN LOWEST POSITION, BED RAILS X2, CALL LIGHT WITHIN REACH. WILL CONTINUE POC.
--- NOTE | 2020-07-06 19:17 | NUR ---
PATIENT RESTING IN BED WITH NO S/S OF DISTRESS AND DENIES NEEDS AT THIS TIME. PATIENT RATED PAIN 1/10 AFTER MORPHINE. PATIENT REQUESTED ANOTHER "PAIN SHOT" AT 2230. I EXPLAINED TO THE PATIENT THAT SINCE SHE IS POSTOP WE SHOULD TRY THE ORAL PAIN MEDICATION THAT IS ORDERED. I ALSO EXPLAINED PAIN PILLS WILL CONTROL HER PAIN LONGER THAN IV PAIN MEDICATION. PATIENT STATED SHE WANTS TO STAY WITH THE IV MEDICATION TONIGHT AND TOMORROW MORNING. BED IN LOWEST POSITION AND CALL LIGHT IN REACH. ENCOURAGED PATIENT TO CALL WITH NEEDS.
[2020-07-06 20:02] VITALS: BP 125/56
--- NOTE | 2020-07-06 20:20 | NUR ---
ADMINISTERED MEDS PER ORDERS. PATIENT MARY JANE WELL. ENCOURAGED TO CALL WITH NEEDS.
[2020-07-07 00:41] VITALS: BP 107/58
[2020-07-07 04:52] VITALS: BP 169/77
[2020-07-07 07:28] LABS: BASOPHILS 0.3 % (0-2); EOSINOPHILS 1.8 % (0-7); HEMATOCRIT 28.8 % (36.0-48.0); HEMOGLOBIN 9.7 g/dL (12-16); IMMATURE GRANULOCYTES 0.1 % (0-5); LYMPHOCYTE ABS# 0.94 10x3/uL (1.18-3.74); LYMPHOCYTES 9.3 % (15-50); MCH 29.8 pg (26.0-34.0); MCHC 33.7 g/dL (31.0-37.0); MCV 88.3 fL (80.0-100.0); MONOCYTES 9.5 % (2-11); PLATELET COUNT 206 10x3/uL (130-400); RBC 3.26 10x6/uL (4.00-5.40); RDW 13.9 % (11.5-14.5); WBC 10.1 10x3/uL (4.8-10.8)
[2020-07-07 07:49] LABS: ALBUMIN 2.7 g/dL (3.4-5.0); ANION GAP 7.3 mmol/L (8-16); BILIRUBIN - TOTAL 0.33 mg/dL (0.2-1.3); CALCIUM 7.4 mg/dL (8.5-10.1); CARBON DIOXIDE 30.7 mmol/L (21.0-32.0); CREATININE - SERUM 0.9 mg/dL (0.6-1.3); MAGNESIUM - SERUM 1.8 mg/dL (1.8-2.4); PROTEIN - SERUM 5.3 g/dL (6.4-8.2)
--- NOTE | 2020-07-07 09:10 | NUR ---
ALERT AND ORIENTED. ASSESSMENT COMPLETE. DENIES NEEDS. BED LOW. CALL GUILLEN AND PERSONAL ITEMS IN REACH. WILL CONTINUE TO MONITOR.
[2020-07-07 09:33] VITALS: BP 128/54
--- NOTE | 2020-07-07 12:09 | NUR ---
SITTING IN CHAIR AT BEDSIDE PER PT. EATING LUNCH. DENIES NEEDS.
[2020-07-07 12:23] VITALS: BP 133/62
[2020-07-07 16:00] VITALS: BP 126/65
--- NOTE | 2020-07-07 19:24 | NUR ---
PATIENT RESTING IN BED WITH NO S/S OF DISTRESS AND DENIES NEEDS AT THIS TIME. BED IN LOWEST POSITION, CALL LIGHT IN REACH, AND BED ALARM ON. ENCOURAGED PATIENT TO CALL WITH NEEDS.
[2020-07-07 19:44] VITALS: BP 117/51
--- NOTE | 2020-07-07 20:23 | NUR ---
ADMINISTERED MEDS PER ORDERS. PATIENT MARY JANE WELL. ENCOURAGED TO CALL WITH NEEDS.
[2020-07-08 05:17] LABS: BASOPHILS 0.3 % (0-2); HEMATOCRIT 28.5 % (36.0-48.0); HEMOGLOBIN 9.6 g/dL (12-16); IMMATURE GRANULOCYTES 0.2 % (0-5); LYMPHOCYTE ABS# 1.52 10x3/uL (1.18-3.74); LYMPHOCYTES 15.3 % (15-50); MCH 29.9 pg (26.0-34.0); MCHC 33.7 g/dL (31.0-37.0); MCV 88.8 fL (80.0-100.0); MEAN PLATELET VOLUME 10.3 fL (7.4-10.4); MONOCYTES 6.8 % (2-11); NEUTROPHIL ABS# 7.48 10x3/uL (1.56-6.13); NEUTROPHILS 75.4 % (40-80); PLATELET COUNT 232 10x3/uL (130-400); RBC 3.21 10x6/uL (4.00-5.40); RDW 13.9 % (11.5-14.5); WBC 9.9 10x3/uL (4.8-10.8)
[2020-07-08 05:44] LABS: ALBUMIN 2.6 g/dL (3.4-5.0); ANION GAP 8.4 mmol/L (8-16); BILIRUBIN - TOTAL 0.45 mg/dL (0.2-1.3); CALCIUM 8.1 mg/dL (8.5-10.1); CARBON DIOXIDE 29.5 mmol/L (21.0-32.0); CREATININE - SERUM 0.8 mg/dL (0.6-1.3); MAGNESIUM - SERUM 1.9 mg/dL (1.8-2.4); POTASSIUM - SERUM 3.9 mmol/L (3.5-5.1); PROTEIN - SERUM 6.1 g/dL (6.4-8.2)
[2020-07-08 08:36] VITALS: BP 169/82
--- NOTE | 2020-07-08 09:39 | NUR ---
PT SITTING UP IN BED WITH FAMILY AT BEDSIDE. RESP EVEN AND UNLABORED. PT REPORTS PAIN 8/10 AT THIS TIME. FAMILY MEMBER REPORTS PT NEEDS "PAIN SHOT". DISCUSSED WITH PT AND FAMILY THAT PT IS POD3 AND SHE HAS HYDROCODONE ORDERED FOR PAIN AND THAT STAFF COULD ADMINISTER PER ORDERS. PT FAMILY QUESTIONS STAFF REGARDING PAIN SHOT. INFORMED HER THAT MORPHINE WAS FOR BREAKTHROUGH PAIN. PROVIDED BOTH PT AND FAMILY EDUCATION REGARDING PAIN MEDICATION AND THAT IT IS NOT A SCHEDULED MEDICATION THAT PT HAS TO ASK FOR PAIN MEDICATION TO BE ADMINISTERED IF SHE IS HURTING. PT VOICES UNDERSTANDING. PAIN MEDICATION ADMINISTERED PER MD ORDER AT THIS TIME. CL WITHIN REACH. ENCOURAGED TO CALL WITH FURTHER NEEDS.
--- NOTE | 2020-07-08 12:04 | MORECARE ---
CASE MANAGEMENT DISCHARGE SUMMARY PATIENT: ESDRAS COPPOLA UNIT: [id number] ADM DATE: 07/04/20 AGE: 80 : 41 SEX: F ROOM/BED: D.2240 AUTHOR: KALEB WEINSTEIN PHYSICIAN: REFERRING PHYSICIAN: ALBANIA GUTIERREZ MD DATE OF SERVICE: 07/08/20 Discharge Plan Patient Name: ESDRAS COPPOLA Facility: [facility]:[place] : 1940 Planned Disposition: Inpatient Rehab Anticipated Discharge Date: Discharge Date: Expected LOS: Initial Reviewer: [email or web address] Initial Review Date: 07/04/2020 Generated: 07/08/20 1:03 pm Comments DCP- Discharge Planning Updated by [email or web address]: Dee Rivero on 07/08/20 9:[address] Patient Name: ESDRAS COPPOLA Admission Status: ER Accout number: [id number] Admission Date: 07-04-2020 : 1940 Admission Diagnosis: Attending: ALBANIA GUTIERREZ Current LOS: 4 Anticipated DC Date: Planned Disposition: Inpatient Rehab Primary Insurance: [facility] Discharge Planning Comments: CM met with patient at bedside after obtaining verbal consent. CM discussed availability / needs of home health, REHAB and medical equipment. Patient and daughter states she will need rehab. DERRELL signed for inpatient rehab at [facility] choice, [facility] as second choice. I have talked with Leah at the tn and she is aware. Anticipate patient dc to rehab when auth is approved. CM to follow and assist as needed. Defense Travel Administrator: Dee Rivero DCP- Discharge Planning Updated by [id number]: Elizabeth Bowser on 07/05/20 5:[address] PER PATIENT'S NURSE, THE PATIENT IS RE[facility]ING TO [facility] BUT NEEDS SURGERY THIS AM I CALLED THE [facility] AND SPOKE WITH DAMIAN SHE STATED THAT THEY WERE ON DIVERSION FOR TELEMETRY AND THE PATIENT HAS A TELEMETRY ORDER, DAMIAN DIRECTED ME TO CALL [phone]. I CALLED THERE AND SPOKE TO ESTRELLA JOSHI NOTIFICATION ID# IS [id number] DCPIA - Discharge Planning Initial Assessment Updated by [email or web address]: Dee Rivero on 07/08/20 11:57 am * Is the patient Alert and Oriented? Yes * [facility] * Preadmission Environment Home with Family * ADLs Independent * List name and contact numbers for known caregivers / representatives who currently or will assist patient after discharge: BG STARKS, * Community resources currently utilized None * Additional services required to return to the preadmission environment? Yes * Can the patient safely return to the preadmission environment? Yes * Has this patient been hospitalized within the prior 30 days at any hospital? No Coverage Notice Reviewer: [email or web address] - Dee Josefa Notice Issued Date-Time: 07/08/2020 11:59 Notice Type: Patient Choice Letter Notice Delivered To: Relationship to Patient: Block Cableman Name: Delivery Method: - Chaya Days: Prior Verbal Notification: Recipient Understood Notice: Yes Recipient Signature: Yes Med Rec Note Co-signed by Attending: Coverage Notice Comment: [facility] inpatient rehab 2nd choice [facility] Last DP export: 07/05/20 5:56 a Patient Name: ESDRAS COPPOLA Page [id number] at 1204 All edits/amendments must be made on the electronic document DICTATION DATE: 07/08/201202 TIMBER PACKER: AMELIA 07/08/201202 RPT#: [id number] DC DATE: STATUS: ADM IN [facility] [address] [place] [address] END OF REPORT
[2020-07-08 12:26] VITALS: BP 108/62
--- NOTE | 2020-07-08 14:55 | NUR ---
Nutrition Follow-up: May discharge to IP rehab soon. Diet: Regular PO intake: 50-75% x last 5 meals Last BM: none recorded since admit Wt: 120# (07/05/20) Meds noted: 1/2NS@75, protonix Labs noted: Na 133(L), Glu 114(H) Recommend continue current diet. Will continue to honor food preferences. RD will follow-up within 3-4 days if patient still admitted.
--- NOTE | 2020-07-08 17:02 | NUR ---
REHAB PRESCREENING Rehab referral recieved. Spoke with Dorcas at [facility] who requested clinicals to be faxed to Alexa Waters at [phone]. Awaiting determination. Thank you for this referral! Radha Cole, [employer]ATHER STRIPPER Rehab PD
[2020-07-08 17:05] VITALS: BP 136/72
--- NOTE | 2020-07-08 17:33 | NUR ---
OT NOTE: PT COMPLETED SIMPLE BED MOB TASKS WITH MAX A. PT HAD C/O PAIN. NURSING AWARE. PT REQUIRED MOD A FOR SIMPLE HYGIENE TASKS. PT REQUIRED EXTRA TIME FOR TASK COMPLETION. [phone] KAE SERNA COTA
[2020-07-08 20:00] VITALS: BP 117/55
[2020-07-09 04:00] VITALS: BP 137/63
[2020-07-09 06:25] LABS: BASOPHILS 0.5 % (0-2); EOSINOPHILS 3.7 % (0-7); HEMATOCRIT 26.8 % (36.0-48.0); HEMOGLOBIN 8.9 g/dL (12-16); IMMATURE GRANULOCYTES 0.1 % (0-5); LYMPHOCYTE ABS# 1.02 10x3/uL (1.18-3.74); LYMPHOCYTES 12.9 % (15-50); MCH 29.6 pg (26.0-34.0); MCHC 33.2 g/dL (31.0-37.0); MEAN PLATELET VOLUME 10.4 fL (7.4-10.4); MONOCYTES 8.6 % (2-11); NEUTROPHIL ABS# 5.87 10x3/uL (1.56-6.13); NEUTROPHILS 74.2 % (40-80); RBC 3.01 10x6/uL (4.00-5.40); WBC 7.9 10x3/uL (4.8-10.8)
[2020-07-09 06:44] LABS: ALBUMIN 2.3 g/dL (3.4-5.0); ANION GAP 6.2 mmol/L (8-16); BILIRUBIN - TOTAL 0.34 mg/dL (0.2-1.3); CALCIUM 8.1 mg/dL (8.5-10.1); CREATININE - SERUM 0.8 mg/dL (0.6-1.3); POTASSIUM - SERUM 4.2 mmol/L (3.5-5.1); PROTEIN - SERUM 5.8 g/dL (6.4-8.2)
[2020-07-09 07:05] LABS: PLATELET COUNT 280 10x3/uL (130-400)
[2020-07-09 08:26] VITALS: BP 99/63
--- NOTE | 2020-07-09 11:50 | NUR ---
OT NOTE: PT DOING WELL. ABLE TO PERFORM GROOMING AND FEEDING WITH SET UP; BED MOB WITH EXT TIME AND MIN/MOD ASSIST; EOB SITTING WITH GOOD BALANCE. PT REQUIRES EXT TIME FOR REST BREAKS AND PREPERATION FOR EACH MOVEMENT. SIT TO STAND WITH MOD ASSIST; TRANSFER WITH MIN ASSIST X 2 AND USE OF WALKER..VERBAL CUES FOR WALKER MGMT AND FOOT PLACEMENT. HAS TOLERATED SITTING UP IN CHAIR THUS FAR FOR GREATER THAN 2 HRS ZE BOWMAN, OTR/L [phone]
[2020-07-09 12:43] VITALS: BP 136/64
--- NOTE | 2020-07-09 14:46 | NUR ---
REHAB PRESCREENING AUTH RECEIVED FROM ID TO [facility] ACUTE INPATIENT REHAB. SHE CAN COME TODAY IF HER PHYSICIANS FEEL SHE IS APPROPRIATE FOR DISCHARGE. THANK YOU FOR THIS REFERRAL! ANGIE RAMIREZ, LOADER DEMOLDER REHAB PD
[2020-07-09] MEDS ORDERED: ACETAMINOPHEN325 MG PO (14:58)
[2020-07-09] MEDS ORDERED: HYDROCODON-ACE1 EA10 PO (14:58)
[2020-07-09] MEDS ORDERED: NICODERM CQ1 EAC3 TRANSDERM (14:58)
[2020-07-09] MEDS ORDERED: IPRAT-ALBUT 0.5-3 ML INH (14:58)
[2020-07-09] MEDS ORDERED: ASPIRIN81 MG PO (14:58)
[2020-07-09] MEDS ORDERED: IPRAT-ALBUT 0.5-3 ML UPD (14:58)
[2020-07-09] MEDS ORDERED: HYDROCODON-ACE1 EAC7 PO (14:58)
[2020-07-09] MEDS ORDERED: PROTONIX40 MG PO (14:59)
[2020-07-09] MEDS ORDERED: COLACE100 MG PO (14:59)
[2020-07-09] MEDS ORDERED: MUCINEX600 MG PO (14:59)
[2020-07-09] MEDS ORDERED: TESSALON PERLE100 MG PO (14:59)
[2020-07-09] MEDS ORDERED: ROCEPHIN 1 GM/D51 G1 IV (17:01)
[2020-07-09] MEDS ORDERED: ZITHROMAX 500M500 MG IV (17:01)
[2020-07-09 17:58] VITALS: BP 127/74
== END 2020-07-09 18:33 | DRG 481 ==
LOC: D.ER 17:04 → D.EDHOLD 21:11 → D.MS 21:11
PROVIDERS: Family Medicine; Orthopaedic Surgery; ADMIT Family Medicine; ATTEND Family Medicine
PROC: 0QH636Z Insertion of Intramedullary Internal Fixation Device into Right Upper Femur, Percutaneous Approach (ICD-10-PCS; principal; 2020-07-05 15:00)
DX: S72.141A Displaced intertrochanteric fracture of right femur, initial encounter for closed fracture (principal); E87.1 Hypo-osmolality and hyponatremia; F17.203 Nicotine dependence unspecified, with withdrawal; W19.XXXA Unspecified fall, initial encounter; Z86.73 Personal history of transient ischemic attack (TIA), and cerebral infarction without residual deficits; J44.9 Chronic obstructive pulmonary disease, unspecified; M81.0 Age-related osteoporosis without current pathological fracture

== ENCOUNTER 2020-07-09 17:02 | Inpatient (IN) | payer OTHER ==
[~2020-07-09] VITALS: Ht 167.6 cm; Wt 55.3 kg
[~2020-07-09 17:02] MED LIST changes: +ACETAMINOPHEN325 MG PO; +ASPIRIN81 MG PO; +COLACE100 MG PO; +HYDROCODON-ACE1 EA10 PO; +HYDROCODON-ACE1 EAC7 PO; +IPRAT-ALBUT 0.5-3 ML INH; +IPRAT-ALBUT 0.5-3 ML UPD; +MUCINEX600 MG PO; +NICODERM CQ1 EAC3 TRANSDERM; +PROTONIX40 MG PO; +ROCEPHIN 1 GM/D51 G1 IV; +TESSALON PERLE100 MG PO; +TORADOL10 MG PO; +VITAMIN B-121000 MCG PO; +ZITHROMAX 500M500 MG IV
--- NOTE | 2020-07-09 19:10 | NUR ---
RECIEVED PT SITTING UP IN BED WATCHING TV. CL IN REACH. DENIES NEEDS AT THIS TIME. BED IN LOW SIDE RAILS X2. RESP EVEN AND UNLABORED. O2 ON 1L VIA NC. RIGHT HIP DRSG X3 INTACT. RIGHT LEG SWOLLEN. A/O X4. BOWEL ACTIVE X4. LUNGS DIMINSHED. CPOC
[2020-07-09 19:28] VITALS: BP 127/46; BMI 19.7
[2020-07-09 20:34] VITALS: BP 127/42
--- NOTE | 2020-07-09 21:00 | NUR ---
ASSISTED PT ON BEDSIDE COMMODE. MODERATE ASSIST PT SLOW TO GET UP DUE TO RIGHT HIP PAIN. ASSISTED BACK IN BED. CL IN REACH. CPOC
--- NOTE | 2020-07-09 21:45 | NUR ---
ATTEMPTED X2 IV ATTEMPTS INTO RIGHT FOREARM. VEIN BLEW EACH ATTEMPT. KOKO SANCHEZ WAS SUCCESSFUL ON THIRD STICK WITH A 22 GUAGE INTO RIGHT AC.
--- NOTE | 2020-07-09 23:00 | NUR ---
ASSISTED TO AND FROM BEDSIDE COMMODE. CL IN REACH. DENIES FURTHER NEEDS.
--- NOTE | 2020-07-09 23:16 | NUR ---
ASSISTED ON BEDPAN PER PT REQUEST AND PT DID NOT URINATE BUT FELT URGE TO. PT STATED "CANT YOU PUT ANOTHER CATHETAR IN ME LIKE UPSTAIRS DID?" THIS NURSE EDUCATED PT ON REHAB AND ITS PURPOSES TO GET BETTER AND GO FORWARD IN PROGRESS NOT BACKWARDS. ENCOURAGED PT THAT WE GET UP AND GO TO BATHROOM ON REHAB TO GET CLOSER TO GOING HOME. THERE WAS NO REASON TO PUT [place] CATH BACK INTO PATIENT.
--- NOTE | 2020-07-10 01:30 | NUR ---
ASSISTED TO AND FROM BEDSIDE COMMODE. CL IN REACH. DENIES FURTHER NEEDS.
--- NOTE | 2020-07-10 04:00 | NUR ---
ASSISTED TO AND FROM BEDSIDE COMMODE. CL IN REACH. DENIES FURTHER NEEDS.
--- NOTE | 2020-07-10 04:52 | NUR ---
I have reviewed this patient and I concur with the Shift Assessment completed by the Licensed Practical Nurse today this shift.
[2020-07-10 06:21] LABS: BASOPHILS 0.6 % (0-2); EOSINOPHILS 3.6 % (0-7); HEMOGLOBIN 9.3 g/dL (12-16); IMMATURE GRANULOCYTES 0.2 % (0-5); LYMPHOCYTE ABS# 0.81 10x3/uL (1.18-3.74); LYMPHOCYTES 9.5 % (15-50); MCH 30.1 pg (26.0-34.0); MCHC 33.2 g/dL (31.0-37.0); MCV 90.6 fL (80.0-100.0); MONOCYTES 7.6 % (2-11); NEUTROPHIL ABS# 6.66 10x3/uL (1.56-6.13); NEUTROPHILS 78.5 % (40-80); PLATELET COUNT 310 10x3/uL (130-400); RBC 3.09 10x6/uL (4.00-5.40); RDW 14.2 % (11.5-14.5); WBC 8.5 10x3/uL (4.8-10.8)
[2020-07-10 06:45] LABS: ANION GAP 11.5 mmol/L (8-16); CALCIUM 8.4 mg/dL (8.5-10.1); CARBON DIOXIDE 27.8 mmol/L (21.0-32.0); CREATININE - SERUM 0.8 mg/dL (0.6-1.3); POTASSIUM - SERUM 4.3 mmol/L (3.5-5.1)
[2020-07-10 08:00] VITALS: BP 104/44
--- NOTE | 2020-07-10 08:00 | NUR ---
SHIFT ASSMT COMPLETED.CL IN REACH.BREAKFAST GIVEN.
[2020-07-10 09:59] VITALS: Ht 167.6 cm; Wt 55.3 kg
--- NOTE | 2020-07-10 10:54 | NUR ---
PATIENT ADMITTS TO RHAB FROM ACUTE FLOOR. PCP IS SHARIFA AT THE [facility]. DISCHARGE PLANS ARE FOR PATIENT TO RETURN HOME WITH FAMILY. WILL CONTINUE TO FOLLOW WITH PATIENT.
--- NOTE | 2020-07-10 12:00 | NUR ---
REMAINS UP IN WHEELCHAIR.
--- NOTE | 2020-07-10 13:58 | NUR ---
CARE TEAM MEETING: PATIENT IS NEW TO UNIT AND WILL BE RA AT NEXT MEETING. WILL CONTINUE TO FOLLOW WITH PATIENT.
--- NOTE | 2020-07-10 16:00 | NUR ---
REMAINS UP IN CHAIR AFTER TOLIETING.
--- NOTE | 2020-07-10 18:45 | NUR ---
BEDSIDE REPORT COMPLETE. RECEIVED PT SITTING UP ON SIDE OF BED ALERT AND ORIENTED X4. C/O 07/03 MILD ACHING RIGHT HIP DISCOMFORT. DRESSING INTACT TO UPPER X2 INCISIONS, DISTAL INCISION SURGICAL CLOSURE INTACT OPEN TO AIR. RIGHT AC IV SL WITHOUT REDNESS OR SWELLING. PT DENIES TENDERNESS. DRESSING AND SWAB CAP INTACT. +1 EDEMA TO BILATERAL FEET. PT HAS BEEN OFF OXYGEN MAJORITY OF THE DAY REPORTED BY KOKO PANDA. NO SHORTNESS OF BREATH NOTED. O2 SAT 95-96% PER KOKO PANDA. WILL MONITOR OXYGEN LEVELS THIS SHIFT. PT DENIES ANY NEEDS. CALL LIGHT WITHIN REACH. FALL PRECAUTIONS IN PLACE. CPOC
[2020-07-10 20:50] VITALS: BP 136/49
--- NOTE | 2020-07-10 20:50 | NUR ---
PT C/O TOENAILS BOTHERING HER WHEN AMBULATING OR IF BUMPS SOMETHING. INSPECTED FEET AND FOUND TOENAILS VERY LONG, THICK, AND CURLING SIDEWAYS TOUCHING TOE BESIDE IT. RIGHT GREAT TOE NAIL RESTING ON 2ND TOE CAUSING PAIN, ATTEMPTED TO PLACE FOLDED 2X2 FOR PROTECTION. WILL CONSULT WITH DR. KILPATRICK TO SEE IF WE CAN GET PODIATRY CONSULT FOR NAILS TO BE CUT SINCE IT IS CAUSING HER PAIN WITH AMBULATION
--- NOTE | 2020-07-10 21:00 | NUR ---
ASSISTED PT TO RESTROOM WITH MOD ASSIST WITH ALL TRANSFERS. MIN ASSIST WITH DRESSING. TOILETING HYGIENE PERFORMED BY PT INDEPENDENTLY. PT IN BED WITH HOB ELEVATED. RIGHT AC INFUSING ROCEPHINE 100ML/HR. O2 SAT 95% AFTER ACTIVITY. NO DISTRESS NOTED. CALL LIGHT WITHIN REACH. COFFEE PROVIDED PER PT REQUEST. FALL PRECAUTIONS IN PLACE. TERI ALARM ON. CPOC
--- NOTE | 2020-07-10 23:47 | NUR ---
PT LYING IN BED SUPINE EYES CLOSED RESTING. HOB ELEVATED. RR EVEN AND UNLABORED. O2 SAT 95% ON ROOM AIR. NO DISTRESS NOTED. CALL LIGHT WITHIN REACH
--- NOTE | 2020-07-11 00:44 | NUR ---
ASSISTED PT TO RESTROOM AND BACK TO BED WITH MOD ASSIST. VOID ONLY. DENIES ANY OTHER NEEDS OR PAIN. NO DISTRESS NOTED. CALL LIGHT WITHIN REACH. CPOC
--- NOTE | 2020-07-11 02:25 | NUR ---
PT CALLED REQUESTING RESTROOM ASSISTANCE. ASSISTED PT WITH TRANSFERS WITH MOD ASSIST USING W/C. TOILETING HYGIENE PERFORMED INDEPENDENTLY BY PT. PT BACK IN BED, DENIES ANY NEEDS OR PAIN. NO DISTRESS NOTED. O2 SAT AFTER ACTIVITY 96% ON ROOM AIR. CALL LIGHT WITHIN REACH. TERI ALARM ON
--- NOTE | 2020-07-11 04:37 | NUR ---
ASSISTED PT TO RESTROOM AND BACK TO BED WITH MOD ASSIST. PT NEEDS HELP GETTING LEGS IN AND OUT OF BED. DENIES ANY OTHER NEEDS. C/O RIGHT HIP 3/10 ACHING PAIN ONLY WITH MOVEMENT. DENIES ANY NEED FOR PAIN MEDICATION. CALL LIGHT WITHIN REACH. TERI ALARM ON
--- NOTE | 2020-07-11 05:55 | NUR ---
ASSISTED PT TO RESTROOM AND BACK TO BED WITH MOD ASSIST. VOID ONLY. DENIES ANY NEEDS. CALL LIGHT WITHIN REACH
[2020-07-11 08:00] VITALS: BP 116/48
--- NOTE | 2020-07-11 10:05 | NUR ---
IN WC IN ROOM WORKING WITH THERAPY.
--- NOTE | 2020-07-11 13:22 | NUR ---
LAYING DOWN IN BED RESTING QUIETLY. SAT UP IN WC IN ROOM FOR LUNCH. STILL DENIES WANTING NICOTINE PATCH. HAS OXYGEN AVAIL IF NEEDED. SATS IN MID TO LOW 90'S. NEEDS SBA TO TRANSFER SHE DOES IT HERSELF. CALL LIGHT IN REACH
--- NOTE | 2020-07-11 18:53 | NUR ---
BEDSIDE REPORT COMPLETE. RECEIVED PT SITTING UP IN BED AWAKE. ALERT AND ORIENTED X4. DENIES ANY PAIN OR NEEDS. RIGHT AC IV WITHOUT REDNESS OR SWELLING. DRESSING AND SWAB CAP INTACT. RIGHT HIP DRESSING C/D/I. NO OXYGEN NOTED. O2 SAT 95% ON ROOM AIR. CALL LIGHT AND WATER WITHIN REACH. TERI ALARM ON. CPOC
[2020-07-11 19:58] VITALS: BP 116/46
--- NOTE | 2020-07-12 00:39 | NUR ---
ASSISTED PT TO RESTROOM AND BACK TO BED WITH MOD ASSIST. DENIES ANY OTHER NEEDS OR PAIN. NO DISTRESS NOTED. CALL LIGHT AND WATER WITHIN REACH. FALL PRECAUTIONS IN PLACE. CPOC
--- NOTE | 2020-07-12 03:05 | NUR ---
PT LYING IN BED SUPINE EYES CLOSED RESTING. RR EVEN AND UNLABORED. CALL LIGHT WITHIN REACH.
--- NOTE | 2020-07-12 04:02 | NUR ---
PT CALLED REQUESTING BATHROOM ASSISTANCE. ASSISTED PT WITH TRANSFER WITH MOD ASSIST. TOILETING HYGIENE PERFORMED BY PT INDEPENDENTLY. PT BACK IN BED ASSISTANCE GETTING LEGS IN AND OUT OF BED. HOB ELEVATED. TERI ALARM ON. CALL LIGHT WITHIN REACH
[2020-07-12 05:47] LABS: EOSINOPHILS 5.1 % (0-7); HEMATOCRIT 25.2 % (36.0-48.0); HEMOGLOBIN 8.4 g/dL (12-16); IMMATURE GRANULOCYTES 0.4 % (0-5); LYMPHOCYTE ABS# 0.89 10x3/uL (1.18-3.74); LYMPHOCYTES 12.8 % (15-50); MCH 29.7 pg (26.0-34.0); MCHC 33.3 g/dL (31.0-37.0); MEAN PLATELET VOLUME 9.7 fL (7.4-10.4); MONOCYTES 11.5 % (2-11); NEUTROPHIL ABS# 4.79 10x3/uL (1.56-6.13); NEUTROPHILS 69.2 % (40-80); PLATELET COUNT 371 10x3/uL (130-400); RBC 2.83 10x6/uL (4.00-5.40); RDW 14.2 % (11.5-14.5); WBC 6.9 10x3/uL (4.8-10.8)
--- NOTE | 2020-07-12 06:05 | NUR ---
ASSISTED PT TO RESTROOM AND BACK TO BED WITH MOD ASSIST. VOID ONLY. CALL LIGHT AND WATER WITHIN REACH. TERI ALARM ON
[2020-07-12 06:20] LABS: CALC OSMOLALITY 273 mosm/kg (275-300); CALCIUM 8.3 mg/dL (8.5-10.1); CARBON DIOXIDE 28.4 mmol/L (21.0-32.0); CHLORIDE - SERUM 102 mmol/L (98-107); CREATININE - SERUM 0.7 mg/dL (0.6-1.3); GLUCOSE 113 mg/dL (74-106); SODIUM 135 mmol/L (136-145); UREA NITROGEN 22 mg/dL (7-18); eGFR NON AFRICAN AMERICAN 85 mL/min (90-120)
[2020-07-12 08:00] VITALS: BP 131/54
--- NOTE | 2020-07-12 11:41 | NUR ---
SPOKE WITH PATIENT DAUGHTER CLARISSE AND SHE IS CALL[facility] AND [facility] . WILL CONTINUE TO FOLLOW WITH PATIENT.
--- NOTE | 2020-07-12 12:04 | NUR ---
SITTING UP IN FOR LUNCH. HAS BEEN WORKING WITH THERAPY THIS MORNING AND DENIES INCREASED PAIN. PAIN MEDS GIVEN ORDERED AND REQUESTED. CALL LIGHT IN REACH
--- NOTE | 2020-07-12 12:55 | NUR ---
WHEN PATIENT DISCHARGES CALL ALEJANDRO BOYCE AT THE [place] [phone], FAX : [phone]. WILL CONTINUE TO FOLLOW WITH PATIENT.
--- NOTE | 2020-07-12 18:23 | NUR ---
PT STILL CONSTIPATED BUT REFUSING LAXATIVES......
--- NOTE | 2020-07-12 20:00 | NUR ---
AWAKE AND ALERT. RESPIRATIONS UNLABORED. RIGHT ARM SALINE LOCK INTACT WITH NO SIGN OF INFILTRATION. DRESSINGS INTACT TO RIGHT LEG. NO ACUTE DISTRESS NOTED. ASSISTED TO BATHROOM AND BACK TO BED. C/O CONSTIPATION. REFUSES MIRALAX. WILL REVIEW OTHER OPTIONS. CALL LIGHT IN REACH.
[2020-07-12 20:03] VITALS: BP 122/51
--- NOTE | 2020-07-13 05:27 | NUR ---
RESTLESS HOURS. UP 10 TIMES IN 12 HOURS TO GO TO BATHROOM. RESPIRATIONS UNLABORED. NO DISTRESS NOTED.
--- NOTE | 2020-07-13 08:00 | NUR ---
SHIFT ASSMT COMPLETED.
[2020-07-13 08:18] VITALS: BP 119/56
[2020-07-13 08:49] LABS: HEMATOCRIT 31.5 % (36.0-48.0); HEMOGLOBIN 10.7 g/dL (12-16)
--- NOTE | 2020-07-13 16:00 | NUR ---
MARY JANE THERAPY.
[2020-07-13 19:00] VITALS: BP 107/43
--- NOTE | 2020-07-13 19:16 | NUR ---
AWAKE AND ALERT. RESTING IN BED WITH RESPIRAITONS UNLABORED. SALINE LOCK WAS OUT WITH CANNULA INTACT. PATIENT STATES HER YELLOW BRACELET HUNG ON IT AND PULLED IT OUT. WILL RESTART SOON. STATES SHE IS HAPPY SHE GOT SOMETHING FROM DOCTOR FOR HER URINARY FERQUENCY. NO ACUTE DISTRESS NOTED. CALL LIGHT IN REACH.
--- NOTE | 2020-07-13 21:36 | NUR ---
IV RESITED TO LEFT FOREARM WITH 22 IV CATH. TOLERATED WELL.
--- NOTE | 2020-07-14 05:03 | NUR ---
QUIET HOURS. NO ACUTE DISTRESS NOTED. UP TO BATHROOM SOME BUT NOT MUCH THE NIGHT BEFORE. RESTING IN BED WITH RESPIRAITONS UNLABORED.
--- NOTE | 2020-07-14 08:00 | NUR ---
SHIFT ASSMT COMPLETED
[2020-07-14 08:48] VITALS: BP 160/61
[2020-07-14 19:00] VITALS: BP 128/74
--- NOTE | 2020-07-14 19:26 | NUR ---
AWAKE AND ALERT. ASSISTED TO BATHROOM AND BACK TO BED. SALINE LOCK IN LEFT FOREARM INTACT WITH NO SIGNS OF INFILTRATION. RESPIRATIONS UNLABORED. CALL LIGHT IN REACH.
--- NOTE | 2020-07-15 01:32 | NUR ---
RESTING IN BED WITH RESPIRATIONS UNLABORED. NO DISTRESS NOTED.
--- NOTE | 2020-07-15 05:06 | NUR ---
GETTING SHOWER. NO ACUTE CHANGES IN CONDITION THIS SHIFT. NO DISTRESS NOTED.
[2020-07-15 07:28] LABS: BASOPHILS 0.7 % (0-2); EOSINOPHILS 5.7 % (0-7); HEMATOCRIT 32.1 % (36.0-48.0); HEMOGLOBIN 10.5 g/dL (12-16); IMMATURE GRANULOCYTES 0.2 % (0-5); LYMPHOCYTE ABS# 1.04 10x3/uL (1.18-3.74); MCH 29.3 pg (26.0-34.0); MCHC 32.7 g/dL (31.0-37.0); MCV 89.7 fL (80.0-100.0); MEAN PLATELET VOLUME 9.1 fL (7.4-10.4); MONOCYTES 7.5 % (2-11); NEUTROPHIL ABS# 5.84 10x3/uL (1.56-6.13); NEUTROPHILS 72.9 % (40-80); PLATELET COUNT 418 10x3/uL (130-400); RBC 3.58 10x6/uL (4.00-5.40); RDW 15.3 % (11.5-14.5)
--- NOTE | 2020-07-15 07:31 | NUR ---
ALERT AND ORIENTED. ASSESSMENT COMPLETE. DENIES NEEDS. BED LOW. CALL GUILLEN AND PERSONAL ITEMS IN REACH. WILL CONTINUE TO MONITOR.
[2020-07-15 07:32] LABS: ANION GAP 10.4 mmol/L (8-16); CALCIUM 8.7 mg/dL (8.5-10.1); CARBON DIOXIDE 26.6 mmol/L (21.0-32.0); CREATININE - SERUM 0.8 mg/dL (0.6-1.3)
[2020-07-15 07:47] VITALS: BP 142/64
--- NOTE | 2020-07-15 10:22 | NUR ---
Nutrition Re-Assessment Diet: Regular PO intake: 100% x last 8 meals Last BM: 07/14/20 Wt: 122# (07/10/20) Meds noted: probiotics, abx Labs noted: Glu 115(H) Estimated nutrition needs remain unchanged from initial nutrition assessment. Nutrition diagnosis: Increased protein needs r/t s/p surgery AEB increased demand for healing. Patient is progressing towards meeting nutrition goals at this time. Recommendations/Interventions: -Will continue to provide Regular diet. Will continue to honor food preferences. -RD will continue to monitor PO intake and wt trend. -RD will follow-up within 7 days.
--- NOTE | 2020-07-15 17:50 | NUR ---
RESTING IN BED. DENIES NEEDS. WILL CONTINUE TO MONITOR.
--- NOTE | 2020-07-15 18:45 | NUR ---
BEDSIDE REPORT COMPLETE. RECEIVED PT SITTING UP IN W/C. ALERT AND ORIENTED X4. DENIES ANY NEEDS OR PAIN. RIGHT HIP INCISION X3 OPEN TO AIR. NO REDNESS OR SWELLING. NO DRAINAGE NOTED. PROXIMAL DERMABOND CLOSURES INTACT. DISTAL INCISION WELL APPROXIMATED NO DERMABOND, DAVE OR SUTURES NOTED. LEFT FOREARM IV WITHOUT REDDNESS OR SWELLING. DRESSING INTACT. TERI ALARM ON. CALL LIGHT AND WATER WITHIN REACH. FALL PRECAUTIONS IN PLACE. CPOC
[2020-07-15 19:09] VITALS: BP 158/50
--- NOTE | 2020-07-16 00:10 | NUR ---
ASSISTED PT TO RESTROOM AND BACK TO BED WITH MIN ASSIST. DENIES ANY NEEDS OR PAIN. NO DISTRESS NOTED. CALL LIGHT WITHIN REACH. CPOC
--- NOTE | 2020-07-16 02:43 | NUR ---
PT LYING IN BED EYES CLOSED RESTING. RR EVEN AND UNLABORED. CALL LIGHT WITHIN REACH.
--- NOTE | 2020-07-16 03:54 | NUR ---
ASSISTED PT TO RESTROOM AND BACK TO BED WITH MIN ASSIST USING WALKER. DENIES ANY NEEDS OR PAIN. NO DISTRESS NOTED. CALL LIGHT WITHIN REACH. TERI ALARM ON
--- NOTE | 2020-07-16 04:25 | RHP ---
PATIENT: ESDRAS COPPOLA MEDICAL RECORD: [id number] ACCOUNT: [id number] LOCATION:[facility]1114 : 42 ADMISSION DATE: 07/09/20 REHABILITATION HISTORY AND PHYSICAL EXAMINATION POST ADMISSION PHYSICIAN EXAMINATION POST ADMISSION PHYSICAL EXAMINATION AND HISTORY AND PHYSICAL ADMITTING DIAGNOSIS: Intertrochanteric fracture of the right femur. HISTORY OF PRESENT ILLNESS: The patient admitted after an intertrochanteric fracture of the right femur, status post intramedullary nailing by Dr. Motley. She is postop day #5. She is a 80-year-old female patient with a history of CVA, TIA, COPD, and ongoing tobacco use, who apparently tripped over a cord while walking in her kitchen, struck her legs. She presented to the ED with right leg pain, mid femur. She denies striking her head. No other complaints. All of her other systems on review are all within normal limits or negative. X-ray showed no acute fracture to the right femur. CT of her right hip showed no acute fracture of the right femoral neck. She was admitted with a right femoral neck fracture. She is nicotine dependent and did experience some withdrawal symptoms. She is on a Nicoderm patch at this time. Prior to this fall, she was actually living alone and was completely independent with ADLs and mobility. She will require intensive inpatient therapy and medical management while in the rehab unit to get back to her prior level of functioning. She is mid to mod assist with ADLs and max assist with ambulating about 3 feet with a rolling walker and 2-person assist. Barriers to discharge home include need for monitoring her lab values, cognition, medication adjustments, monitoring pain control, bladder training. She got decreased activity tolerance, decreased strength, balance deficits, impaired mobility, dyspnea on exertion. She is a high fall risk and self-care deficits. These are all barriers to her discharge home. COMORBIDITIES: Include COPD, hearing loss, hyponatremia, leukocytosis and osteoporosis. PAST MEDICAL HISTORY: Significant for CVA, TIA. She has got hearing deficits, COPD, tobacco use, cervical cancer, and osteoporosis. PAST SURGICAL HISTORY: Includes a and hysterectomy. ALLERGIES: No known drug allergies. CURRENT MEDICATIONS: She is on Floranex daily. She is on a Nicoderm patch 14 mg. She is on B12 1000 mcg daily, Protonix 40 mg daily, Zithromax 500 mg every 24 hours and Rocephin a gram 24 hours. She is on DuoNeb updrafts, Colace 100 mg b.i.d., Mucinex 1200 mg b.i.d., Tessalon Perles 100 mg t.i.d., Aspirin chewable 81 mg daily, [place] 10/325 one tab q.4 hours p.r.n., and Tylenol as needed. HABITS: Does have a history of tobacco use. FAMILY HISTORY: Noncontributory. SOCIAL HISTORY: The patient hopes to return back home and get back to her prior level of functioning. HISTORY AND PHYSICAL [id number] ESDRAS COPPOLA REVIEW OF SYSTEMS: GENERAL: Does complain of a little weakness, fatigue. HEENT: Denies cold, cough or congestion. CARDIOVASCULAR: Denies any chest pain. PHYSICAL EXAMINATION: VITAL SIGNS: Stable, afebrile. GENERAL: An elderly female, in no acute distress, alert upon exam. HEENT: Normocephalic and atraumatic. Mucosa moist. NECK: Supple. No lymphadenopathy. LUNGS: Clear in upper law with decreased breath sounds in the bases. CARDIOVASCULAR: Regular rate and rhythm. She does have a holosystolic murmur. ABDOMEN: Soft, benign, nondistended. Positive bowel sounds times 4. EXTREMITIES: No clubbing, cyanosis or edema. Postoperative area looks pretty good. NEUROLOGIC: She does have some decreased strength in her core region. LABORATORY DATA: Her white count is 8.5, H&H of 9.3 and 28.8, and platelet count is noted to be 310. Sodium is 135, potassium 4.3, BUN and creatinine of 19 and 0.8, and blood sugar was noted to be 100. ASSESSMENT: A 80-year-old female patient admitted to rehab with a working diagnosis of intertrochanteric fracture of the right femur. The patient has potential to make improvement. We instituted the following multidisciplinary including, not limited to physical, occupational, respiratory, speech, nutritional services, prosthetics and orthotics. Given her complex medical condition and risks for more complications, rehabilitation services cannot be provided at a low level of care such as alf facility. PLAN: 1. Admit to [facility] for inpatient therapy to include the following disciplines; A. Physical therapy to improve gait, all transfer skills and bed mobility to a modified independent level. B. Occupational therapy to improve activities of daily living. C. Case management to help with discharge planning and placement options. D. Nutrition to assist with nutritional needs. E. Rehabilitation nursing to assist in monitoring the patient's underlying medical conditions and to assist with any type of bowel or bladder management. 2. The patient's current medication and medical care will be continued. 3. Placed on standard fall precautions. 4. The patient's estimated length of stay is approximately 7-10 days. 5. We will discuss this patient during care team staff meeting this week. We will continue on appropriate medications and I will again in the a.m. TRANSINT:[id number] Voice Confirmation ID: [id number] DOCUMENT ID: [id number] ROSE notes whether there has been none or any medical/functional change since admission: - No change since preadmission screen. ROSE attests patient continues to be appropriate for IRF: - Continues to be appropriate. HISTORY AND PHYSICAL [id number] ESDRAS COPPOLA,SHERI CRAVEN MD at 0425 CC: [id number] DICTATION DATE: 07/10/20 0841 BREAD RACKER: 07/10/20 1136 ADM IN [facility] [id number] [place] [address]
--- NOTE | 2020-07-16 05:41 | NUR ---
ASSISTED PT TO RESTROOM AND BACK TO BED WITH MIN ASSIST. VOID ONLY. DENIES ANY NEEDS OR PAIN. NO DISTRESS NOTED. NO ACUTE CHANGES IN CONDITION THIS SHIFT. CALL LIGHT AND WATER WITHIN REACH. TERI ALARM ON. CPOC
[2020-07-16 07:55] VITALS: BP 115/66
--- NOTE | 2020-07-16 10:27 | NUR ---
HAS BEEN UP WORKING WITH THERAPY. C/O PAIN TO HIP AND PAIN MEDS GIVEN ORDERED AND REQUESTED.
--- NOTE | 2020-07-16 18:42 | NUR ---
BEDSIDE REPORT COMPLETE. RECEIVED PT SITTING UP IN BED, ALERT AND ORIENTED X4. DENIES ANY PAIN OR NEEDS. RIGHT HIP INCISION X3 OPEN TO AIR. MIDDLE INCISION DERMABOND CLOSURE INTACT WITH OUTTER EDGES PULLING LOOSE. NO DRAINAGE NOTED. NO REDNESS OR SWELLING. LEFT FOREARM IV SL. DRESSING AND SWAB INTACT. NO DISTRESS NOTED. CALL LIGHT AND WATER WITHIN REACH. FALL PRECAUTIONS IN PLACE. CPOC
[2020-07-16 20:00] VITALS: BP 119/45
--- NOTE | 2020-07-16 23:40 | NUR ---
PT LYING IN BED SUPINE EYES CLOSED RESTING. RR EVEN AND UNLABORED. CALL LIGHT WITHIN REACH.
--- NOTE | 2020-07-17 02:50 | NUR ---
ASSISTED PT TO RESTROOM AND BACK TO BED WITH MIN ASSIST USING W/C. VOID ONLY. DENIES ANY NEEDS OR PAIN. NO DISTRESS NOTED. CALL LIGHT WITHIN REACH.
[2020-07-17 07:00] LABS: BASOPHILS 0.7 % (0-2); EOSINOPHILS 6.6 % (0-7); IMMATURE GRANULOCYTES 0.3 % (0-5); LYMPHOCYTES 14.6 % (15-50); MCH 29.5 pg (26.0-34.0); MCHC 32.4 g/dL (31.0-37.0); MCV 91.2 fL (80.0-100.0); MEAN PLATELET VOLUME 9.6 fL (7.4-10.4); MONOCYTES 7.1 % (2-11); NEUTROPHIL ABS# 4.86 10x3/uL (1.56-6.13); NEUTROPHILS 70.7 % (40-80); PLATELET COUNT 467 10x3/uL (130-400); RBC 3.73 10x6/uL (4.00-5.40); RDW 15.7 % (11.5-14.5); WBC 6.9 10x3/uL (4.8-10.8)
[2020-07-17 07:15] LABS: ANION GAP 8.4 mmol/L (8-16); CALCIUM 8.7 mg/dL (8.5-10.1); CARBON DIOXIDE 31.2 mmol/L (21.0-32.0); CREATININE - SERUM 0.9 mg/dL (0.6-1.3); POTASSIUM - SERUM 4.6 mmol/L (3.5-5.1)
[2020-07-17 07:41] VITALS: BP 138/54
--- NOTE | 2020-07-17 16:06 | NUR ---
CARE TEAM MEETING: PATIENT AND HER DAUGHTER ATTENDED THE MEETING. HER TENATIVE DC DATE IS 07/24/20 HOME WITH HER DAUGHTER. WILL CONTINUE TO FOLLOW WITH PATIENT AND WILL ASSIST WITH DC NEEDS.
--- NOTE | 2020-07-17 18:50 | NUR ---
BEDSIDE REPORT COMPLETE. RECEIVED PT SITTING UP IN BED, ALERT AND ORIENTED X4. DENIES ANY NEEDS OR PAIN. NO DISTRESS NOTED. RIGHT HIP INCISION X3 OPEN TO AIR. NO S/S OF INFECTION. NO DRAINAGE NOTED. CALL LIGHT WITHIN REACH. FALL PRECAUTIONS IN PLACE. CPOC
[2020-07-17 21:20] VITALS: BP 112/41
--- NOTE | 2020-07-18 01:46 | NUR ---
PT LYING IN BED EYES CLOSED RESTING. RR EVEN AND UNLABORED. CALL LIGHT WITHIN REACH
--- NOTE | 2020-07-18 02:31 | NUR ---
ASSISTED PT TO RESTROOM AND BACK TO BED WITH MIN ASSIST USING W/C. DENIES ANY OTHER NEEDS OR PAIN. NO DISTRESS NOTED. CALL LIGHT WITHIN REACH.
--- NOTE | 2020-07-18 04:00 | NUR ---
ASSISTED PT TO RESTROOM AND BACK TO BED WITH MIN ASSIST USING W/C. DENIES ANY OTHER NEEDS OR PAIN. NO DISTRESS NOTED. CALL LIGHT WITHIN REACH
[2020-07-18 08:00] VITALS: BP 127/51
--- NOTE | 2020-07-18 08:00 | NUR ---
SHIFT ASSMT COMPLETED.CL IN REACH.
[2020-07-18 20:00] VITALS: BP 111/48
--- NOTE | 2020-07-18 20:30 | NUR ---
PATIENT IS ALERT/ORIENT. SITTING UP IN BED WATCHIN T.V. CALL LIGHT WITHIN REACH. VOICES NO NEEDS AT THIS TIME. WILL CONTINUE WITH PLAN OF CARE
--- NOTE | 2020-07-18 23:15 | NUR ---
PATIENT RESTING WELL. EYES CLOSED. CALL LIGHT WITHIN REACH.
--- NOTE | 2020-07-19 04:11 | NUR ---
PATIENT HELPED INTO BATHROOM. MIN ASST OF ONE FROM BED TO WHEELCHAIR.
--- NOTE | 2020-07-19 05:23 | NUR ---
I have reviewed this patient and I concur with the Shift Assessment completed by the Licensed Practical Nurse today this shift.
[2020-07-19 08:00] VITALS: BP 115/51
--- NOTE | 2020-07-19 10:29 | NUR ---
HAS BEEN UP WORKING WITH THERAPY THIS MORNING. PAIN MEDS GIVEN ORDERED AND REQUESTED. IS IMPROVING IN ABILITY TO STAND AND TRANSFER. INCISIONS HEALING TO RT HIP WITH NO S/S INFECTION. 2+ EDEMA NOTED TO BLE.
--- NOTE | 2020-07-19 18:45 | NUR ---
BEDSIDE REPORT COMPLETE. RECEIVED PT SITTING UP IN BED. ALERT AND ORIENTED X4. DENIES ANY NEEDS OR PAIN. NO DISTRESS NOTED. RIGHT HIP INCISIONS X3 WELL APPROXIMATED, NO REDNESS, SWELLING, OR DRAINAGE NOTED. ALL OPEN TO AIR. NO IV OR OXYGEN NOTED. CALL LIGHT AND WATER WITHIN REACH. FALL PRECAUTIONS IN PLACE. CPOC
[2020-07-19 19:56] VITALS: BP 114/41
--- NOTE | 2020-07-19 22:00 | NUR ---
ASSISTED PT TO RESTROOM AND BACK TO BED WITH MIN ASSIST. DENIES ANY OTHER NEEDS OR PAIN. NO DISTRESS NOTED. CALL LIGHT WITHIN REACH
[2020-07-19 22:11] LABS: BASOPHILS 0.8 % (0-2); EOSINOPHILS 6.4 % (0-7); HEMATOCRIT 33.2 % (36.0-48.0); HEMOGLOBIN 10.7 g/dL (12-16); IMMATURE GRANULOCYTES 0.1 % (0-5); LYMPHOCYTE ABS# 0.95 10x3/uL (1.18-3.74); LYMPHOCYTES 12.5 % (15-50); MCH 29.4 pg (26.0-34.0); MCHC 32.2 g/dL (31.0-37.0); MCV 91.2 fL (80.0-100.0); MEAN PLATELET VOLUME 9.4 fL (7.4-10.4); MONOCYTES 6.3 % (2-11); NEUTROPHIL ABS# 5.62 10x3/uL (1.56-6.13); NEUTROPHILS 73.9 % (40-80); PLATELET COUNT 466 10x3/uL (130-400); RBC 3.64 10x6/uL (4.00-5.40); RDW 15.8 % (11.5-14.5); WBC 7.6 10x3/uL (4.8-10.8)
[2020-07-19 22:19] LABS: ANION GAP 9.5 mmol/L (8-16); CALCIUM 8.7 mg/dL (8.5-10.1); CARBON DIOXIDE 32.3 mmol/L (21.0-32.0); POTASSIUM - SERUM 4.8 mmol/L (3.5-5.1)
--- NOTE | 2020-07-20 00:31 | NUR ---
ASSISTED PT TO RESTROOM AND BACK TO BED WITH MIN ASSIST USING W/C. DENIES ANY OTHER NEEDS. CALL LIGHT WITHIN REACH.
--- NOTE | 2020-07-20 04:00 | NUR ---
ASSISTED PT TO RESTROOM AND BACK TO BED WITH MIN ASSIST USING W/C. DENIES ANY OTHER NEEDS OR PAIN. NO ACUTE CHANGES IN CONDITION THIS SHIFT. CALL LIGHT WITHIN REACH
[2020-07-20 08:00] VITALS: BP 117/47
--- NOTE | 2020-07-20 15:18 | NUR ---
C/O NOT RESTING WELL LAST PM AND HAS STAYED IN BED SLEEPING ALL DAY. IS GETTING STRONGER AND IS ABLE TO GET SELF OUT OF BED BY SELF AND BACK IN BY SELF NOW. DENIES NEW OR WORSE PAIN. CALL LIGHT IN REACH
--- NOTE | 2020-07-20 18:45 | NUR ---
BEDSIDE REPORT COMPLETE. RECEIVED PT SITTING UP ON SIDE OF BED. ASSISTED PT TO RESTROOM AND BACK WITH MIN ASSIST USING W/C. RIGHT HIP INCISION X3 WELL APPROXIMATED, HEALING WELL, NO DRAINAGE NOTED. NO S/S OF INFECTION. O2/2L VIA NC PRN. O2 SAT 94% ON O2/2L. O2 SAT 91% ON ROOM AIR. PT C/O FREQUENT OCCASSIONAL PRODUCTIVE COUGH. REPORTS CLEAR THICK SPUTUM. THIS NURSE HAS NOT OBSERVED SPUTUM TO VERIFY COLOR AND CONSISTENCY. NO IV NOTED. RLE EDEMA +2 PITTING AROUND ANKLE AND FOOT. LLE +1 EDEMA SOME PITTING IN ANKLE AREA. NO OTHER NEEDS VOICED. C/O MILD RIGHT HIP DISCOMFORT TOLERABLE FOR NOW PER PT. CALL LIGHT AND HYDRATION WITHIN REACH. FALL PRECAUTIONS IN PLACE. CPOC
[2020-07-20 20:12] VITALS: BP 110/50
--- NOTE | 2020-07-20 21:43 | NUR ---
PT LYING IN BED EYES CLOSED RESTING. RR EVEN AND UNLABORED. CALL LIGHT WITHIN REACH. TERI ALARM ON. CPOC
--- NOTE | 2020-07-21 00:40 | NUR ---
ASSISTED PT TO RESTROOM AND BACK TO BED WITH MIN ASSIST USING W/C. NO OTHER NEEDS VOICED. NO DISTRESS NOTED. CALL LIGHT WITHIN REACH
--- NOTE | 2020-07-21 03:00 | NUR ---
ASSISTED PT TO RESTROOM AND BACK TO BED WITH MIN ASSIST USING W/C. DENIES ANY OTHER NEEDS. NO DISTRESS NOTED. CALL LIGHT WITHIN REACH.
--- NOTE | 2020-07-21 03:40 | NUR ---
ASSISTED PT TO RESTROOM AND BACK TO BED WITH MIN ASSIST USING W/C. VOID ONLY. DENIES ANY OTHER NEEDS. CALL LIGHT WITHIN REACH
--- NOTE | 2020-07-21 04:50 | NUR ---
ASSISTED PT TO RESTROOM AND BACK TO BED WITH MIN ASSIST USING W/C. VOID AND SMALL BM. C/O 08/03 ACHING RIGHT HIP PAIN, REQUESTS PAIN MEDICATION. NO OTHER NEEDS VOICED. CALL LIGHT AND WATER WITHIN REACH. CPOC
[2020-07-21 08:12] VITALS: BP 137/50
--- NOTE | 2020-07-21 18:45 | NUR ---
BEDSIDE REPORT COMPLETE. RECEIVED PT LYING IN BED, ALERT AND ORIENTED X4. DENIES ANY NEEDS OR PAIN. NO DISTRESS NOTED. CALL LIGHT AND WATER WITHIN REACH. FALL PRECAUTIONS IN PLACE. CPOC
[2020-07-21 21:05] VITALS: BP 120/52
--- NOTE | 2020-07-22 02:26 | NUR ---
ASSISTED PT TO RESTROOM AND BACK TO BED WITH MIN ASSIST USING W/C. DENIES ANY OTHER NEEDS. NO DISTRESS NOTED. CALL LIGHT WITHIN REACH.
--- NOTE | 2020-07-22 05:45 | NUR ---
PT LYING IN BED EYES CLOSED RESTING. RR EVEN AND UNLABORED. NO DISTRESS NOTED. NO ACUTE CHANGES IN CONDITION THIS SHIFT. CALL LIGHT WITHIN REACH.
[2020-07-22 07:12] LABS: BASOPHILS 1.1 % (0-2); EOSINOPHILS 11.1 % (0-7); HEMATOCRIT 35.7 % (36.0-48.0); HEMOGLOBIN 11.4 g/dL (12-16); IMMATURE GRANULOCYTES 0.1 % (0-5); LYMPHOCYTE ABS# 0.99 10x3/uL (1.18-3.74); LYMPHOCYTES 13.4 % (15-50); MCH 29.3 pg (26.0-34.0); MCHC 31.9 g/dL (31.0-37.0); MCV 91.8 fL (80.0-100.0); MEAN PLATELET VOLUME 9.6 fL (7.4-10.4); MONOCYTES 7.3 % (2-11); NEUTROPHIL ABS# 4.97 10x3/uL (1.56-6.13); PLATELET COUNT 489 10x3/uL (130-400); RBC 3.89 10x6/uL (4.00-5.40); RDW 15.7 % (11.5-14.5); WBC 7.4 10x3/uL (4.8-10.8)
[2020-07-22 08:00] VITALS: BP 147/69
[2020-07-22 09:19] LABS: ANION GAP 8.7 mmol/L (8-16); CALCIUM 8.8 mg/dL (8.5-10.1); CARBON DIOXIDE 31.2 mmol/L (21.0-32.0); CREATININE - SERUM 0.8 mg/dL (0.6-1.3); POTASSIUM - SERUM 3.9 mmol/L (3.5-5.1)
--- NOTE | 2020-07-22 12:30 | NUR ---
WALKING WITH WALKER NOW AND DOING GOOD JOB OF IT. IS ANXIOUIS TO PROGRESS AND GO HOME. INCISIONS TO RT LATERAL HIP HAVE HEALED UP NICELY AND HAVE NO S/S INFECTION. STILL HAS SOME EDEMA TO BLE AROUND ANKLES.
--- NOTE | 2020-07-22 12:49 | NUR ---
Nutrition Re-Assessment Diet: Regular PO intake: ~84% average x last 9 meals. She is very pleased with the food here Last BM: 07/22/20 Wt: 122# (07/10/20)- no new weight Meds noted: senokot, probiotics Labs reviewed Estimated nutrition needs remain unchanged from initial nutrition assessment. Nutrition diagnosis remains unchanged from previous nutrition re-assessment. Patient continues to progress towards meeting nutrition goals at this time. Recommendations/Interventions: -Recommend continue current diet. -RD will continue to monitor PO intake and wt trend. -RD will follow-up within 7 days.
--- NOTE | 2020-07-22 14:50 | NUR ---
ORDER FAXED TO [facility] AT THE [place] FOR [facility]ME NEEDS ( 02, WALKER, WHEELCHAIR, AND HOME HEALTH ) FAXED TO [phone] FOR A DC DATE OF 07/24/20. WILL CONTINUE TO FOLLOW WITH PATIENT.
[2020-07-22 20:00] VITALS: BP 138/74
--- NOTE | 2020-07-23 04:25 | NUR ---
STANDBY ASSISTED PT TO THE BATHROOM SHE USED HER WALKER. SHE WALKED TO BED SHE HAD EXPIRATORY WHEEZES. O2 SAT 92% ONCE SHE GOT BACK INTO BED. SHE WAS SHORT OF BREATH WELL. IMPROVMENT NOTED ONCE SHE PUT THE 2L NASAL CANNULA BACK ON. SHE DENIES NEEDS OR PAIN AT THIS TIME. HER BED IS LOW AND CALL LIGHT IS WITHIN REACH. BED ALARM ON.
[2020-07-23 07:04] LABS: ANION GAP 9.4 mmol/L (8-16); CALCIUM 8.6 mg/dL (8.5-10.1); CARBON DIOXIDE 30.1 mmol/L (21.0-32.0)
[2020-07-23 07:05] LABS: POTASSIUM - SERUM 4.5 mmol/L (3.5-5.1)
[2020-07-23 08:00] VITALS: BP 140/55
[2020-07-23 08:14] LABS: BASOPHILS 2.2 % (0-2); EOSINOPHILS 11.8 % (0-7); HEMATOCRIT 35.1 % (36.0-48.0); HEMOGLOBIN 11.2 g/dL (12-16); IMMATURE GRANULOCYTES 0.2 % (0-5); LYMPHOCYTE ABS# 0.92 10x3/uL (1.18-3.74); LYMPHOCYTES 14.6 % (15-50); MCH 29.6 pg (26.0-34.0); MCHC 31.9 g/dL (31.0-37.0); MCV 92.6 fL (80.0-100.0); MEAN PLATELET VOLUME 9.7 fL (7.4-10.4); MONOCYTES 7.9 % (2-11); NEUTROPHIL ABS# 3.98 10x3/uL (1.56-6.13); NEUTROPHILS 63.3 % (40-80); PLATELET COUNT 454 10x3/uL (130-400); RBC 3.79 10x6/uL (4.00-5.40); RDW 15.8 % (11.5-14.5); WBC 6.3 10x3/uL (4.8-10.8)
[2020-07-23 08:29] VITALS: BP 140/55
--- NOTE | 2020-07-23 08:37 | NUR ---
SHE IS USING THE WALKER TO GET TO THE BATHROOM. HER RIGHT HIP INCISIONS ARE HEALING. THE RIGHT LOWER LEG HAS SOME EDEMA 2+. THE CALL LIGHT IS WITHIN REACH.
--- NOTE | 2020-07-23 12:35 | NUR ---
PATIENT AT REST O2 SAT ON ROOM AIR 88%, APPLIED O2 AT 2 L PER NC AT REST O2 SAT IS 92%, PATIENT DISCHARGING IN CHRONIC STABLE CONDITION.
[2020-07-23] MEDS ORDERED: HYDROCODON-ACE1 EA10 PO (14:26)
--- NOTE | 2020-07-23 20:22 | NUR ---
AWAKE AND ALERT. RESTING IN BED WITH RESPRIATIONS UNLABORED. O2/2L ON PER NASAL CANNULA. MEDICATED RECENTLY FOR PAIN. SEE MAR. NO DISTRESS NOTED.
--- NOTE | 2020-07-24 01:30 | NUR ---
RESTING QUIETLY NO DISTRESS NOTED.
--- NOTE | 2020-07-24 02:30 | NUR ---
C/O SHORTNESS OF BREATH AND COUOGHING. COARSE LUNG SOUNDS. O2 SATURATION 88 ON ROOM AIR. O2/2L WAS TAKEN OFF BY PATIENT HERSELF. INSTRUCTED TO PUT O2 BACK ON AND SHE COMPLIED. O2 SATURATION CAME UP TO 95% AFTER 5 MINUTES BUT SHE STATED SHE STILL FELT SHORT OF BREATH AND CONTINUED TO COUGH. RESPIRATORY THERAPIST NOTIFED. TREATMENT WAS GIVEN. SHE ALSO REQUESTED PAIN MEDICATION AT THIS TIME. MEDICATED WITH NORCO 10MG PO. WILL MONITOR.
--- NOTE | 2020-07-24 05:28 | NUR ---
NOW RESTING QUIETLY WITH O2/2L ON PER NASAL CANNULA. CALL LIGHT IN REACH.
[2020-07-24 05:34] LABS: EOSINOPHILS 9.1 % (0-7); HEMATOCRIT 33.5 % (36.0-48.0); HEMOGLOBIN 10.8 g/dL (12-16); IMMATURE GRANULOCYTES 0.1 % (0-5); LYMPHOCYTE ABS# 0.86 10x3/uL (1.18-3.74); MCH 29.5 pg (26.0-34.0); MCHC 32.2 g/dL (31.0-37.0); MCV 91.5 fL (80.0-100.0); MEAN PLATELET VOLUME 9.9 fL (7.4-10.4); MONOCYTES 7.6 % (2-11); NEUTROPHIL ABS# 5.02 10x3/uL (1.56-6.13); NEUTROPHILS 70.2 % (40-80); PLATELET COUNT 451 10x3/uL (130-400); RBC 3.66 10x6/uL (4.00-5.40); RDW 15.8 % (11.5-14.5); WBC 7.2 10x3/uL (4.8-10.8)
[2020-07-24 06:00] LABS: ANION GAP 9.6 mmol/L (8-16); CALCIUM 8.6 mg/dL (8.5-10.1); CARBON DIOXIDE 27.5 mmol/L (21.0-32.0); CREATININE - SERUM 0.8 mg/dL (0.6-1.3); POTASSIUM - SERUM 4.1 mmol/L (3.5-5.1)
--- NOTE | 2020-07-24 14:06 | NUR ---
PATIENT DISCHARGING HOME WITH FAMILY TODAY. DERRELL SIGNED, IMM SERVED AND EXPLAINED ONE GIVEN TO PATIENT AND ONE FILED IN CHART. [facility] THROUGH THE [place]. RECORDS FAXED TO [facility] FOR A FOLLOW UP APPOINTMENT [phone] REF[address] # [id number]. DR. PAGE 07/29/20 @ 9:45. DISCHARGE INSTRUCTIONS REVIEWED WITH PATIENT.
== END 2020-07-24 14:46 | disposition home health service (06) | DRG 560 ==
LOC: D.REHAB 17:02
PROVIDERS: Family Medicine; ADMIT Emergency Medicine; ATTEND Emergency Medicine
DX: S72.141D Displaced intertrochanteric fracture of right femur, subsequent encounter for closed fracture with routine healing (principal); E87.1 Hypo-osmolality and hyponatremia; F17.203 Nicotine dependence unspecified, with withdrawal; W22.8XXA Striking against or struck by other objects, initial encounter; J44.9 Chronic obstructive pulmonary disease, unspecified; M81.0 Age-related osteoporosis without current pathological fracture; D72.829 Elevated white blood cell count, unspecified; H91.90 Unspecified hearing loss, unspecified ear; Z86.73 Personal history of transient ischemic attack (TIA), and cerebral infarction without residual deficits; Z85.41 Personal history of malignant neoplasm of cervix uteri